=== PATIENT | female | born 1960 | race Caucasian/White ===

== ENCOUNTER 2016-07-17 11:04 | Inpatient (IN) | payer OTHER, MEDICAID, MEDICARE ==
[~2016-07-17] VITALS: Ht 174.6 cm; Wt 89.3 kg
[~2016-07-17 11:04] MED LIST: ALBU17IN2 INH; AMLO5TAB2 PO; ATIV1TAB7 PO; ATIV2TAB PO; BENA20TA2 PO; BIMA01SOL OU; EFFE150C PO; EFFE75CA75 PO; GEOD60CA PO; MULT1TAB10 PO; VENL37CA PO
[2016-07-17 12:41] LABS: MEAN CORPUSCULAR HEMOGLOBIN 28.5 pg (27.0-33.0); MEAN CORPUSCULAR VOLUME 89.1 fl (80.0-96.0)
[2016-07-17 12:48] LABS: AMPHETAMINES LEVEL URINE NEGATIVE (NEGATIVE); BENZODIAZEPINES URINE NEGATIVE (NEGATIVE); COCAINE METABOLITE URINE NEGATIVE (NEGATIVE); CONTROL LINE INT CTR LINE PRESENT; METHADONE URINE NEGATIVE (NEGATIVE); OPIATES URINE NEGATIVE (NEGATIVE); TRICYCLIC ANTIDEPRESS URINE NEGATIVE (NEGATIVE)
[2016-07-17 13:03] LABS: ALBUMIN 4.1 GM/DL (3.2-5.2); ALBUMIN/GLOBULIN RATIO 1.32 (1.00-1.93); ALKALINE PHOSPHATASE 62 U/L (45-117); ALT/SGPT 34 U/L (12-78); ANION GAP 8 MEQ/L (8-16); AST/SGOT 20 U/L (15-37); BILIRUBIN,DIRECT 0.2 MG/DL (0.0-0.2); BILIRUBIN,TOTAL 0.7 MG/DL (0.2-1.0); BLOOD UREA NITROGEN 10 MG/DL (7-18); CALCIUM LEVEL 9.6 MG/DL (8.5-10.1); CARBON DIOXIDE LEVEL 30 MEQ/L (21-32); CHLORIDE LEVEL 100 MEQ/L (98-107); CREATININE FOR GFR 1.07 MG/DL (0.55-1.02); GLOMERULAR FILTRATION RATE 56.5 (>51); GLUCOSE, FASTING 98 MG/DL (70-105); POTASSIUM SERUM 4.6 MEQ/L (3.5-5.1); SODIUM LEVEL 138 MEQ/L (136-145); TOTAL PROTEIN 7.2 GM/DL (6.4-8.2)
[2016-07-17] MEDS ORDERED: CALC600T10 PO (14:06)
[2016-07-17] MEDS ORDERED: ALPH0.156 OU (14:06)
[2016-07-17] MEDS ORDERED: ABIL1TAB5 PO (14:06)
--- NOTE | 2016-07-17 16:51 | EDDOCDS ---
Physician Documentation [employer] Name: Emma Chopra Age: 56 yrs Sex: Female : 1960 Arrival Date: 07/17/2016 Time: 11:04 Bed [facility] MD: Disposition: 07/17 13:38 Critical Care: Critical care not applicable. pc Disposition: 07/17/16 13:38 Hospitalization ordered by Florencio Bunch for Inpatient Admission. Preliminary diagnosis is Bipolar disorder, current episode depressed, moderate. - Bed requested for Admit. - Status is Inpatient Admission. jf3 - Condition is Stable. - Problem is new. - Symptoms are unchanged. HPI: 13:16 This 56 yrs old Female presents to ER via Ambulance with complaints of Psych pc Problem. 13:16 The history is obtained from the patient. The patient presents to the emergency pc department with She was sent for admission by her Psychiatrist, Dr. Joseph, due to depression. Historical: - Allergies: SULFA (SULFONAMIDES) (Rash); TETRACYCLINES (Rash); Tegretol; Erythromycin (Rash); PENICILLINS (Rash); Amoxicillin; Macrodantin; Lamictal; - Home Meds: 1. Abilify 10 mg Oral tab 1 tab once daily nightly (Last dose: 07/16/2016) 2. albuterol MDI PRN (Last dose: Unknown) 3. proAir HFA PRN (Last dose: Unknown) 4. Effexor XR 150 mg oral cp24 once daily nightly (Last dose: 07/16/2016) 5. Geodon 80 mg am and 120 mg evening Oral cap (Last dose: 07/17/2016 05:00) 6. Ativan 1 mg am and 2 mg night Oral tab (Last dose: 07/17/2016 05:00) 7. benazepril 20 mg oral tab 1 tab once daily (Last dose: 07/16/2016 21:00) 8. alphagan eye drops twice a day (Last dose: 07/17/2016 05:00) 9. Lumigan Opht once daily nightly (Last dose: 07/16/2016) 10. calcium 1200mg daily (Last dose: 07/16/2016) 11. multivitamin Oral cap 1 tablet daily (Last dose: 07/17/2016 05:00) - PMHx: Arthritis; Bipolar disorder; Depression; - PSHx: bunion and hammer toe surgery left foot; - The history from nurses notes was reviewed: and I agree with what is documented. - Social history: No barriers to communication noted, The patient speaks fluent Barbadian, Smoking status: other. - Family history: Not pertinent. - : The pt / caregiver states he / she is not on anticoagulants. Home medication list is obtained from the patient, patients' pharmacy. - Hospitalizations: : No recent hospitalization is reported. - Exposure Risk Screening:: None identified. - Immunization history:: All immunizations up-to-date. - Social history:: the patient is a non-smoker, the patient does not drink alcohol. ROS: 13:16 All systems are negative except as listed. The psychiatric and neurological components pc are also addressed in the HPI. Exam: 13:16 General Appearance: alert, no acute distress. pc 13:16 ENT: ear, nose and throat normal, pharynx normal. 13:16 Eyes: pupils equal, round and reactive to light, extraocular motions intact. 13:16 Neck: The exam reveals no acute abnormalities. ROM is normal and painless. No nuchal rigidity is noted.. 13:16 Respiratory: breathing is even and unlabored, breath sounds are normal. 13:16 Cardiovascular: regular pulse rate, regular heart rhythm, normal heart sounds, equal and full pulses bilaterally. 13:16 Abdomen: soft, non-tender, no organomegaly, normal bowel sounds. 13:16 Skin: skin color is normal, warm, dry. 13:16 Extremities: The extremities have a grossly normal appearance, are non-tender, without acute ROM abnormalities. 13:16 Neuro: alert, oriented to person, place and time, cranial nerves normal as tested, no motor deficits, no sensory deficits. 13:16 Psych: mood is depressed, affect is flat. Vital Signs: 11:45 BP 166 / 92; Pulse 80; Resp 16; Temp 99.8(O); Pulse Ox 96% on R/A; Pain 0/10; jf3 12:09 Weight 86.18 kg / 189.99 lbs; Height 5 ft. 8 in. (172.72 cm); jf3 16:47 BP 171 / 84; Pulse 84; Resp 18; Temp 99.8(O); Pulse Ox 98% on R/A; Pain 0/10; jf3 12:09 Body Mass Index 28.89 (86.18 kg, 172.72 cm) jf3 MDM: 12:04 Consult PFS/PSA/Vacuum Drier Operator: Patient's case requires discussion with on-call pc Psychiatrist ordered. 12:04 PSA/PFS to call Nursing Sales Enablement Lead, to enter patient data on [employer] Safe Act if patient pc involuntarily admitted or transferred for SI or HI ordered. 12:04 Confirm accurate psychiatric medication list and times of last dosage ordered. pc 12:04 Detain Pt Until Medically/PFS Cleared ordered. pc 12:05 Acetaminophen Level Ordered. EDMS 12:05 Basic Metabolic Profile Ordered. EDMS 12:05 Complete Blood Count Ordered. EDMS 12:05 Drug Eval Toxicology ED Only Ordered. EDMS 12:05 Ethyl Alcohol (ethanol) Ordered. EDMS 12:05 Liver Profile Ordered. EDMS 12:06 Salicylate Level Ordered. EDMS 12:06 Thyroid Stimulating Hormone Ordered. EDMS 12:24 REGULAR DIET PLASTIC WRIGHT+DIET ordered. EDMS 12:33 Consult PFS/PSA/Vacuum Drier Operator: Patient's case requires discussion with on-call ca Psychiatrist complete. 13:15 Acetaminophen Level Reviewed. pc 13:15 Basic Metabolic Profile Reviewed. pc 13:15 Salicylate Level Reviewed. pc 13:15 Complete Blood Count Reviewed. pc 13:15 Drug Eval Toxicology ED Only Reviewed. pc 13:15 Ethyl Alcohol (ethanol) Reviewed. pc 13:15 Liver Profile Reviewed. pc 13:15 Thyroid Stimulating Hormone Reviewed. pc 13:16 Differential diagnosis: depression. Plan: labs, PFS eval. pc 13:37 The patient has been medically cleared for psychiatric evaluation, admission and/or pc transfer. [place]: [place] to the [place] was not completed because the patient did not display any suicidal or homicidal ideation and was not considered a risk to self or others. 13:38 Data reviewed: old medical records, vital signs, nurses notes, lab test results. Test pc interpretation: LAB - all labs as ordered have been reviewed, interpreted and considered in the overall management of the clinical presentation;. The patient has been re-examined and re-evaluated. There is no appreciated change of the patient's symptoms at this time. Disposition: The historical points, examination findings, and any diagnostic results supporting the provided diagnosis, were discussed with the patient or legal guardian. The need for further work-up and/or treatment in the hospital was explained. 13:54 Admit to [facility]: ordered. EDMS 14:26 Financial registration complete. mm15 14:27 [facility] Payment Agreement was scanned into [employer] and attached to record. mm15 14:44 PSA/PFS to call Nursing Sales Enablement Lead, to enter patient data [place] Safe [place] if patient ca involuntarily admitted or transferred for SI or HI complete. Signatures: Dispatcher [employer] EDMS Francisco Mclaughlin MD MD pc Anderson, Cathy, ANAYA PSA ca Chikis Aguila mm15 Devin Huang,RN RN jf3 The chart was reviewed and I authenticate all verbal orders and agree with the evaluation and treatment provided.Attachments: 14:27 [facility] Payment Agreement mm15 MTDD
--- NOTE | 2016-07-17 16:51 | EDDOCDS ---
Nurse's Notes [facility] Name: Emma Chopra Age: 56 yrs Sex: Female : 1960 Arrival Date: 07/17/2016 Time: 11:[address] MD: Diagnosis: Bipolar disorder, current episode depressed, moderate Presentation: 07/17 11:53 Presenting complaint: Patient states: Pt sent by Dr Lowe for "being too depressed". Pt jf3 states she has been "having mood swings, is stressed out, exhausted, terrible home life and mother is not well". Pt denies SI/HI but wants to be admitted. Mental Health Triage Level: Level 2:. Adult Sepsis Screening: The patient does not have new or worsening altered mentation. Patient's respiratory rate is less than 22. Systolic blood pressure is greater than 100. Patient has a qSOFA score of 0- Negative Sepsis Screen. Suicide/Homicide risk assessment- Patient denies SI and HI but presents with another emotional, behavioral or other mental health complaint. Status: Patient is not a volunteer services specialist or dependent. Transition of care: patient was received from [facility]. Dr Lowe. Care prior to arrival: See EMS report. 11:53 Acuity: SHAY Level 3 jf3 11:53 Method Of Arrival: Ambulance jf3 Triage Assessment: 12:03 General: Appears in no apparent distress, comfortable, Behavior is cooperative. Pain: jf3 Denies pain. Pt Declines HIV testing. The patient is triaged at the bedside. See Assessment in Nurses Notes section of ED record. Historical: - Allergies: SULFA (SULFONAMIDES) (Rash); TETRACYCLINES (Rash); Tegretol; Erythromycin (Rash); PENICILLINS (Rash); Amoxicillin; Macrodantin; Lamictal; - Home Meds: 1. Abilify 10 mg Oral tab 1 tab once daily nightly (Last dose: 07/16/2016) 2. albuterol MDI PRN (Last dose: Unknown) 3. proAir HFA PRN (Last dose: Unknown) 4. Effexor XR 150 mg oral cp24 once daily nightly (Last dose: 07/16/2016) 5. Geodon 80 mg am and 120 mg evening Oral cap (Last dose: 07/17/2016 05:00) 6. Ativan 1 mg am and 2 mg night Oral tab (Last dose: 07/17/2016 05:00) 7. benazepril 20 mg oral tab 1 tab once daily (Last dose: 07/16/2016 21:00) 8. alphagan eye drops twice a day (Last dose: 07/17/2016 05:00) 9. Lumigan Opht once daily nightly (Last dose: 07/16/2016) 10. calcium 1200mg daily (Last dose: 07/16/2016) 11. multivitamin Oral cap 1 tablet daily (Last dose: 07/17/2016 05:00) - PMHx: Arthritis; Bipolar disorder; Depression; - PSHx: bunion and hammer toe surgery left foot; - The history from nurses notes was reviewed: and I agree with what is documented. - Social history: No barriers to communication noted, The patient speaks fluent Syriac, Smoking status: other. - Family history: Not pertinent. - : The pt / caregiver states he / she is not on anticoagulants. Home medication list is obtained from the patient, patients' pharmacy. - Hospitalizations: : No recent hospitalization is reported. - Exposure Risk Screening:: None identified. - Immunization history:: All immunizations up-to-date. - Social history:: the patient is a non-smoker, the patient does not drink alcohol. Screenin:33 Screening information is obtained from the patient. Fall risk: No risks identified. jf3 Assistance ADL's: requires no assistance with activities of daily living. Abuse/DV Screen: The patient / caregiver reports he/she is: in a living situation that causes fear, pain or injury. PSA aware. Nutritional screening: No deficits noted. Advance Directives: Currently, there is a health care proxy, Maritza palomares, sister in law. home support is inadequate. Assessment: 12:10 Adult Sepsis Screening: The patient does not have new or worsening altered mentation. jf3 Patient's respiratory rate is less than 22. Systolic blood pressure is greater than 100. Patient has a qSOFA score of 1- Negative Sepsis Screen. General: Appears in no apparent distress, comfortable, Behavior is cooperative. Pain: Denies pain. Neurological: Level of Consciousness is awake, alert, Oriented to person, place, time. Cardiovascular: Capillary refill < 3 seconds Chest pain is denied. Respiratory: Airway is patent Respiratory effort is even, unlabored, Respiratory pattern is regular, symmetrical, Denies shortness of breath at rest. Derm: Skin is pink, warm & dry. 12:33 General: Appears in no apparent distress, comfortable, Behavior is cooperative, Pt jf3 changed by FARSHAD Peña. Resting supine on stretcher. respirations easy and unlabored. Security observing. 13:30 General: Appears in no apparent distress, comfortable, Behavior is cooperative, Pt jf3 given lunch tray. Resting on stretcher. respirations easy and unlabored. Med list verified through [facility] in [place]. Security observing. 14:30 General: Appears in no apparent distress, comfortable, Behavior is cooperative, Pt jf3 resting sitting up on stretcher. respirations easy and unlabored. Security observing. Will continue to monitor. 15:30 General: Appears in no apparent distress, comfortable, Behavior is cooperative, Pt jf3 resting supine on stretcher. respirations easy and unlabored. Will continue to monitor. 16:47 General: Appears in no apparent distress, comfortable, Behavior is cooperative. Pain: jf3 Denies pain. Neurological: Level of Consciousness is awake, alert, Oriented to person, place, time. Cardiovascular: Capillary refill < 3 seconds. Cardiovascular: Chest pain is denied. Respiratory: Airway is patent Respiratory effort is even, unlabored, Respiratory pattern is regular, symmetrical, Denies shortness of breath at rest. Derm: Skin is pink, warm & dry. Mental Health Eval: 12:32 Mental health consult is initiated at 12:32. Status: The patient is not a sc volunteer services specialist or dependent. [facility] Behavioral Health: The patient is established as a patient of [facility] Behavioral Health. Referral Information: Evaluation referral is generated by the patient's psychiatrist Dr Joseph at [facility]. The patient was referred for evaluation because Pt is depressed, decompensating . Dr Joseph requests admission for pt. 12:54 Subjective: The patients chief complaint is Pt saw her therapist at [facility] clinic today. ca Pt has multiple home stressors that are getting worse. Delusions are paranoid. 13:13 Subjective: Patient's mood is anxious, depressed, hopeless, Hallucinations are denied. ca 13:28 Subjective: Pt appears depressed. Speech is rapid, . She notes anger outbursts centered ca around difficulties within her family. Believes her sister wants her to and feels afraid the sister intends to kill her or make pt kill herself. Pt states "She's always sharpening knives and grinning at me." Pt adds that since she is able to read people's minds she knows what her family is thinking and knows that they want her . "I don't think I'm safe. They're trying to kill me." "Everything is falling apart.". Mental Health history: Bipolar Disorder, depression, Mental Health Admissions: Most recently 10/2015 at [facility] Current Outpatient Mental Health Services: Psychiatrist / Agency: Dr Joseph. Therapist / Agency: Roselia Bernal at [facility]. Current living environment is Family / Home Support: Lives with mother and sister The patient is single. Patient presents to Emergency Department with the following symptoms within the past 2 weeks: anger, anxiety, delusions of persecution, depressed mood, feelings of helplessness/hopelessness, paranoia, relational problem, sleep disturbance - erratic. Substance abuse: Pt denies. Mental status exam: Patients appearance is appropriate, Patient's behavior is cooperative, Speech is rapid. Affect is labile. Mood is depressed. Hallucinations are denied. Appetite is normal. Memory is good. Energy level is normal. Content of thought is Paranoid, delusional, depressive Thought process is intact. Disposition: Medically cleared for disposition by Francisco Mclaughlin MD Psychiatric Consult is performed by phone with Dr Florencio Bunch. [facility] Admission Criteria: The patient displays symptoms of severe psychiatric disorder resulting in disordered behavior and significant interference with his / her ability to maintain self care. Delusions. Severe Anxiety. The patient requires continuous observation and/or control to protect self, others or property. The patient's care requires a multi-modal treatment plan under close supervision and coordination due to the complexity and severity of the patient's symptoms. The patient requires administration and monitoring of psychoactive medications by skilled medical providers due to the side effects of the psychoactive medications or significant dosage adjustments. Legal Status: Patient's legal status will be Emergency admission: . [place] because the patient does not display any suicidal or homicidal ideations and does not pose a risk to self or others. DSM-V Differential Diagnosis: Bipolar II Disorder (F31.81) Current or most recent episode depressed, Unspecified. Insurance Pre-Certification: In progress. Awaiting: transfer to [facility]. Vital Signs: 11:45 BP 166 / 92; Pulse 80; Resp 16; Temp 99.8(O); Pulse Ox 96% on R/A; Pain 0/10; jf3 12:09 Weight 86.18 kg; Height 5 ft. 8 in. (172.72 cm); jf3 16:47 BP 171 / 84; Pulse 84; Resp 18; Temp 99.8(O); Pulse Ox 98% on R/A; Pain 0/10; jf3 12:09 Body Mass Index 28.89 (86.18 kg, 172.72 cm) jf3 Vitals: 12:03 Log In Time N/A - ambulance arrival. jf3 ED Course: 11:05 Patient visited by Chikis Aguila. mm15 11:[address] [facility] mm15 11:06 Patient moved to [facility] jrd 11:16 Patient visited by Avery Christianson PCA. jrd 11:21 Patient visited by Avery Christianson PCA. jrd 11:36 Francisco Mclaughlin MD is Attending Physician. pc 11:38 Patient visited by Avery Christianson PCA. jrd 11:45 Patient visited by Avery Christianson PCA. jrd 11:56 Triage Initiated jf3 12:04 Patient visited by Francisco Mclaughlin MD. pc 12:10 Patient visited by Avery Christianson PCA. jrd 12:10 The patient / caregiver is instructed regarding the plan of care and ED course. jf3 12:11 Patient visited by Devin Huang RN. jf3 12:14 Patient visited by Avery Christianson PCA. jrd 12:18 Patient visited by Avery Christianson PCA. jrd 12:32 Acetaminophen Level Sent. jf3 12:32 Basic Metabolic Profile Sent. jf3 12:32 Complete Blood Count Sent. jf3 12:32 Drug Eval Toxicology ED Only Sent. jf3 12:32 Ethyl Alcohol (ethanol) Sent. jf3 12:32 Liver Profile Sent. jf3 12:32 Salicylate Level Sent. jf3 12:32 Thyroid Stimulating Hormone Sent. jf3 12:33 Labs drawn. (by ED staff). Sent per order to lab. Urine collected. Urine specimen sent jf3 to lab. 12:36 Patient visited by Devin Huang RN. jf3 12:56 Patient visited by Avery Christianson PCA. jrd 13:07 Patient visited by Avery Christianson PCA. jrd 13:16 Patient visited by Avery Christianson PCA. jrd 13:30 Patient visited by Avery Christianson PCA. jrd 13:38 AliviaFlorencio brooks is Hospitalizing Provider. pc 13:42 Patient visited by Devin Huang RN. jf3 13:46 Patient visited by Avery Christianson PCA. jrd 14:01 Patient visited by Avrey Christianson PCA. jrd 14:14 Patient visited by Avery Christianson PCA. jrd 14:27 [facility] Payment Agreement was scanned into [employer] and attached to record. mm15 14:52 Patient visited by Devin Huang RN. jf3 15:32 Patient visited by Avery Christianson PCA. jrd 16:00 Patient visited by Avery Christianson PCA. jrd 16:12 Patient visited by Avery Christianson PCA. jrd 16:28 Patient visited by Avery Christianson PCA. jrd 16:47 No IV's were initiated during this patient's visit. No procedures done that require jf3 assistance. Order Results: Lab Order: Acetaminophen Level; SPEC'M 07/17/16 12:29 Test: ACETAMINOPHEN LEVEL; Value: < 2.0; Range: 10.0-30.0; Abnormal: Below low normal; Units: UG/ML; Status: F Lab Order: Basic Metabolic Profile; SPEC'M 07/17/16 12:29 Test: GLUCOSE, FASTING; Value: 98; Range: 70-105; Units: MG/DL; Status: F Test: BLOOD UREA NITROGEN; Value: 10; Range: 7-18; Units: MG/DL; Status: F Test: CREATININE FOR GFR; Value: 1.07; Range: 0.55-1.02; Abnormal: Above high normal; Units: MG/DL; Status: F Test: GLOMERULAR FILTRATION RATE; Value: 56.5; Range: >51; Status: F Test: SODIUM LEVEL; Value: 138; Range: 136-145; Units: MEQ/L; Status: F Test: POTASSIUM SERUM; Value: 4.6; Range: 3.5-5.1; Units: MEQ/L; Status: F Test: CHLORIDE LEVEL; Value: 100; Range: 98-107; Units: MEQ/L; Status: F Test: CARBON DIOXIDE LEVEL; Value: 30; Range: 21-32; Units: MEQ/L; Status: F Test: ANION GAP; Value: 8; Range: 8-16; Units: MEQ/L; Status: F Test: CALCIUM LEVEL; Value: 9.6; Range: 8.5-10.1; Units: MG/DL; Status: F Test Note: ; Units are mL/min/1.73 m2 Chronic Kidney Disease Staging per NKF: Stage I & II GFR >=60 Normal to Mildly Decreased Stage III GFR 30-59 Moderately Decreased Stage IV GFR 15-29 Severely Decreased Stage V GFR <15 Very Little GFR Left ESRD GFR <15 on LOG DECK TENDER Lab Order: Complete Blood Count; SPEC'M 07/17/16 12:29 Test: WHITE BLOOD COUNT; Value: 9.0; Range: 4.0-10.0; Units: K/mm3; Status: F Test: RED BLOOD COUNT; Value: 4.72; Range: 4.00-5.40; Units: M/mm3; Status: F Test: HEMOGLOBIN; Value: 13.5; Range: 12.0-16.0; Units: g/dl; Status: F Test: HEMATOCRIT; Value: 42.1; Range: 36.0-47.0; Units: %; Status: F Test: MEAN CORPUSCULAR VOLUME; Value: 89.1; Range: 80.0-96.0; Units: fl; Status: F Test: MEAN CORPUSCULAR HEMOGLOBIN; Value: 28.5; Range: 27.0-33.0; Units: pg; Status: F Test: MEAN CORPUSCULAR HGB CONC; Value: 32.0; Range: 32.0-36.5; Units: g/dl; Status: F Test: RED CELL DISTRIBUTION WIDTH; Value: 13.0; Range: 11.5-14.5; Units: %; Status: F Test: PLATELET COUNT, AUTOMATED; Value: 264; Range: 150-450; Units: k/mm3; Status: F Lab Order: Drug Eval Toxicology ED Only; SPEC'M 07/17/16 12:29 Test: AMPHETAMINES LEVEL URINE; Value: NEGATIVE; Range: NEGATIVE; Status: F Test: BARBITURATES URINE; Value: NEGATIVE; Range: NEGATIVE; Status: F Test: BENZODIAZEPINES URINE; Value: NEGATIVE; Range: NEGATIVE; Status: F Test: CANNABINOIDS URINE; Value: NEGATIVE; Range: NEGATIVE; Status: F Test: COCAINE METABOLITE URINE; Value: NEGATIVE; Range: NEGATIVE; Status: F Test: METHADONE URINE; Value: NEGATIVE; Range: NEGATIVE; Status: F Test: OPIATES URINE; Value: NEGATIVE; Range: NEGATIVE; Status: F Test: TRICYCLIC ANTIDEPRESS URINE; Value: NEGATIVE; Range: NEGATIVE; Status: F Test Note: ; ALL PRESUMPTIVE POSITIVE FINDINGS ARE UNCONFIRMED NORMAL VALUES THRESHOLD IN NG/ML AMPHETAMINES 1000 METHAMPHETAMINES 1000 BARBITURATES 300 BENZODIAZEPINES 300 CANNABINOIDS (THC) 50 COCAINE METABOLITE 300 METHADONE 300 OPIATES 300 PHENCYCLIDINE 25 TRICYCLIC ANTIDEPRESSANTS 1000 RESULTS ARE FOR MEDICAL PURPOSES ONLY. ALL URINE SPECIMENS WILL BE SAVED FOR 3 DAYS. IF CONFIRMATION OF A PRESUMPTIVE POSTIVE SCREEN RESULT IS DESIRED, CALL CHEMISTRY ([phone]) AND REQUEST URINE TO BE SENT TO REFERENCE LAB. FOR A LIST OF CLOSELY RELATED COMPOUNDS PLEASE CALL THE LAB. Lab Order: Ethyl Alcohol (ethanol); SPEC'M 07/17/16 12:29 Test: ETHYL ALCOHOL (ETHANOL); Value: < 0.003; Range: 0.000-0.010; Units: %; Status: F Lab Order: Liver Profile; SPEC'M 07/17/16 12:29 Test: AST/SGOT; Value: 20; Range: 15-37; Units: U/L; Status: F Test: ALT/SGPT; Value: 34; Range: 12-78; Units: U/L; Status: F Test: ALKALINE PHOSPHATASE; Value: 62; Range: 45-117; Units: U/L; Status: F Test: BILIRUBIN,TOTAL; Value: 0.7; Range: 0.2-1.0; Units: MG/DL; Status: F Test: BILIRUBIN,DIRECT; Value: 0.2; Range: 0.0-0.2; Units: MG/DL; Status: F Test: TOTAL PROTEIN; Value: 7.2; Range: 6.4-8.2; Units: GM/DL; Status: F Test: ALBUMIN; Value: 4.1; Range: 3.2-5.2; Units: GM/DL; Status: F Test: ALBUMIN/GLOBULIN RATIO; Value: 1.32; Range: 1.00-1.93; Status: F Lab Order: Salicylate Level; SPEC'M 07/17/16 12:29 Test: SALICYLATE LEVEL; Value: < 1.7; Range: 5.0-30.0; Abnormal: Below low normal; Units: MG/DL; Status: F Lab Order: Thyroid Stimulating Hormone; SPEC'M 07/17/16 12:29 Test: THYROID STIMULATING HORMONE; Value: 0.895; Range: 0.358-3.740; Units: uIU/ML; Status: F Outcome: 13:38 Decision to Hospitalize by Provider. 16:47 Discharge Assessment: patient administered narcotics - no. The following High Risk jf3 Discharge criteria are identified: None. Admitted to Psych accompanied by tech, via wheelchair, with chart. Condition: stable. No special radiology studies were completed. Property secured with FARSHAD Ashraf. 16:50 Patient left the ED. jf3 Signatures: Francisco Mclaughlin MD MD pc Anderson, Cathy, PSA PSA Chikis Trent mm15 Avery Christianson PCA PCA jrd Farman, Justin,MARIJA RN jf3 NAY
[2016-07-17 17:00] VITALS: BP 184/86
[2016-07-17] MEDS ORDERED: MAALOX 30 ML SUSP *UDC PO PRN (18:45)
[2016-07-17] MEDS ORDERED: traZODone 50 MG TAB PO PRN (20:30)
[2016-07-17] MEDS: LATANOPROST 0.005% OPHTH SOLN 2.5 ML OU SCH (21:00)
[2016-07-17] MEDS: BRIMONIDINE 0.15% OPHTH SOLN 5 ML OU SCH (21:13)
[2016-07-17] MEDS: BENAZEPRIL 20 MG TAB PO SCH (21:13)
[2016-07-17] MEDS: ZIPRASIDONE 20MG CAPSULE (GEODON) PO SCH (21:16)
[2016-07-18 06:37] VITALS: BP 118/84
[2016-07-18] MEDS: BRIMONIDINE 0.15% OPHTH SOLN 5 ML OU SCH ×2 (08:11→20:13)
[2016-07-18] MEDS: ZIPRASIDONE 80 MG CAP (GEODON) PO SCH (10:26)
[2016-07-18] MEDS: LORazepam 1 MG TAB PO SCH ×2 (10:26→20:11)
[2016-07-18] MEDS ORDERED: ALBUTEROL 90 MCG/ACT 8GM HFA INHALER INH PRN (10:45)
--- NOTE | 2016-07-18 10:47 | HPEPDOC ---
Medical History and Physical Date of Admission Jul 17, 2016 at 16:58 History and Physical PCP: Cr ATTENDING: Dr. Kenny Henry HPI: 56yoF admitted to [facility] for Bipolar Disorder, being medically examined today. No acute medical complaints today. Denies any fevers, chills, weakness, fatigue, MCCLELLAN, CP, SOB, cough, palpitations, abdominal pain, N/V/D or changes in bowel or bladder habits. PMHx: Bipolar disorder Asthma Hypertension Glaucoma- Dr Wood Osteoarthritis PSHX: Left foot surgery SOCHX: Resides in: [place] Marital Status: Single Employment: Unemployed Tobacco use: Denies ETOH: Denies Illicit Drugs: Denies IV Drug Use: Denies Tattoos done unprofessionally: Denies FAMHX: Mother: Alive, dementia Father: , renal failure/cancer Siblings: One brother, one sister Alive, unknown Children: Alive, unknown Unexpected deaths due to medical reasons: None. ROS: As noted in HPI, otherwise 11pt ROS of systems reviewed and remarkable only for LMP unknown. PE: Temp on exam 99.0 GEN: 56yoF, appears stated age. Well-nourished, well developed. No acute distress. Alert and oriented x 3. Pleasant, interactive. HEENT: Normocephalic, atraumatic. Pupils are equal, round, and reactive to light. Extraocular movements are intact. No nystagmus appreciated. Sclera are nonicteric. Conjunctiva without injection. Nose midline. Nasal turbinates without bogginess. EACs both patent BL. TMs both visualized and schroeder with good cone of light, no bulging or erythema. No facial asymmetry. Moist mucous membranes. Dentition fair. Pharynx pink and moist, no cobblestoning. Neck supple , trachea midline. No lymphadenopathy or thyromegaly appreciated. CHEST: Regular rate and rhythm, +S1, +S2 LUNGS: Clear to auscultation bilaterally. No wheezes, rales, or rhonchi. Breathing appears symmetric and easy. Patient is speaking in full sentences. No accessory muscle use. ABD: Round, soft, non-tender, non-distended. +Bowel sounds throughout. No rebound or guarding. No costovertebral angle tenderness. EXT: Pulses 2+ bilaterally dorsalis pedis and radial. No lower extremity edema appreciated. SKIN: [place], dry, warm. Capillary refill <2sec. No rashes. NEURO: Alert and oriented x 3. Cranial nerves III-XII are intact. No focal deficits appreciated. EKG: pending. A&P: 56yoF admitted to [facility] for Bipolar Disorder 1. Psych. Plan per Psychiatry. Obtain baseline EKG to assure the safety of psychiatric medications as they can prolong the QT interval. 2. Hypertension. Continue Lotensin 20 mg daily. 3. Glaucoma. Continue Alphagan eyedrops twice daily. Continue Lumigan. Confirm eyedrop regimen with ophthalmology. 4. Follow up with PCP on discharge. Dr Hankins. 5. Accompanied by staff throughout examination, Tania DUTTON. Vital Signs Item Value Date Time White Blood Count 9.0 K/mm3 07/17/16 1229 Oxygen Delivery Method Room Air 07/18/16 0637 Vital Signs Label Value Date Time Patient Temperature 100.3 degrees F 07/18/16 0637 Temperature Source Tympanic 07/18/16 0637 Pulse 95 07/18/16 0637 Respiratory Rate 18 bpm 07/18/16 0637 Blood Pressure Assessment 118/84 (95) 07/18/16 0637 Bedside Pulse Oximetry 95 % 07/18/16 0637 Laboratory Data Labs 24H Laboratory Tests 2 07/17/16 12:29: Acetaminophen Level < 2.0L, Aspartate Amino Transf (AST/SGOT) 20, Alanine Aminotransferase (ALT/SGPT) 34, Alkaline Phosphatase 62, Total Bilirubin 0.7, Direct Bilirubin 0.2, Albumin 4.1, Albumin/Globulin Ratio 1.32, Anion Gap 8, Calcium Level 9.6, Ethyl Alcohol Level < 0.003, Glomerular Filtration Rate 56.5 , Salicylates Level < 1.7L, Thyroid Stimulating Hormone (TSH) 0.895, Total Protein 7.2, Urine Amphetamine Level NEGATIVE, Urine Benzodiazepines Screen NEGATIVE, Urine Cannabinoids NEGATIVE, Urine Cocaine Metabolite NEGATIVE, Urine Opiates Screen NEGATIVE, Urine Barbiturates, Qualitative NEGATIVE, Urine Methadone Screen NEGATIVE, Urine Tricyclic Antidepressants NEGATIVE CBC/BMP Laboratory Tests 07/17/16 12:29 Red Blood Count 4.72, Mean Corpuscular Volume 89.1, Mean Corpuscular Hemoglobin 28.5, Mean Corpuscular Hemoglobin Concent 32.0, Red Cell Distribution Width 13.0 Home Medications Scheduled Aripiprazole (Abilify) 10 Mg Tab 10 MG PO QHS Benazepril HCl (Benazepril HCl) 20 Mg Tab 20 MG PO QHS HTN Bimatoprost (Lumigan) 50 Drop/2.5 Ml Christina 1 DROP OU QHS Brimonidine Tartrate 0.15% (Alphagan P) 0.15 % Christina 1 DROP OU BID Calcium (Calcium) 600 Mg Tab 1,200 MG PO QHS Lorazepam (Ativan) 1 Mg Tab 1 MG PO BID ANXIETY Multivitamins (Multivitamin Adults) 1 Tab Tab 1 TAB PO BID DIETARY SUPPLEMENT Venlafaxine Hydrochloride (Effexor Xr) 150 Mg Cap 150 MG PO QHS DEPRESSION Ziprasidone Hydrochloride (Geodon) 60 Mg Cap 80 MG PO DAILY bipolar Ziprasidone Hydrochloride (Geodon) 60 Mg Cap 120 MG PO QPM bipolar Scheduled PRN Albuterol Sulfate (Proventil Hfa) 167 Puff/6.7 Gm Aers 2 PUFFS INH Q4HP PRN PRN SOB/WHEEZING Allergies Coded Allergies: Erythromycin (Verified Allergy, Mild, 10/26/12) Carbamazepine (Unverified Allergy, Unknown, 07/17/16) Lamotrigine (Unverified Allergy, Unknown, 07/17/16) Nitrofurantoin (Unverified Allergy, Unknown, 07/17/16) Penicillins (Verified Allergy, Unknown, 10/26/12) Penicillins Cross Reactors (Verified Allergy, Unknown, 10/26/12) Sulfa Drugs (Verified Allergy, Unknown, 10/26/12) Sulfa Drugs Cross Reactors (Verified Allergy, Unknown, 10/26/12) Tetracyclines (Verified Allergy, Unknown, 10/26/12) Laurel Darling Jul 18, 2016 10:47
--- NOTE | 2016-07-18 15:17 | ECGEPIP ---
Stationary ECG Study [facility] Test Date: 2016-07-18 Pat Name: TOMASZ EMMANUEL Department: Room: [place] [address] Gender: F Business Development Engineer: DORITA : 1960 Requested By: Laurel Darling Order Number: [id number] Reading MD: Marium Groves Measurements Intervals [place] Rate: 85 P: 34 ME: 155 QRS: 71 QRSD: 88 T: 61 QT: 358 QTc: 426 Interpretive Statements SINUS RHYTHM NORMAL Electronically Signed On 07-18-2016 15:17:29 EST by Marium Groves
[2016-07-18 18:00] VITALS: BP 138/74
[2016-07-18] MEDS: BENAZEPRIL 20 MG TAB PO SCH (20:11)
[2016-07-18] MEDS: ARIPiprazole 10 MG TAB PO SCH (20:11)
[2016-07-18] MEDS: ZIPRASIDONE 20MG CAPSULE (GEODON) PO SCH (20:11)
[2016-07-18] MEDS: VENLAFAXINE **XR** 75MG CAPSULE PO SCH (20:11)
[2016-07-18] MEDS: LATANOPROST 0.005% OPHTH SOLN 2.5 ML OU SCH (20:13)
[2016-07-19 06:36] VITALS: BP 159/92
[2016-07-19] MEDS: MOM 30ML SUSPENSION UDC PO PRN (06:46)
[2016-07-19] MEDS: BRIMONIDINE 0.15% OPHTH SOLN 5 ML OU SCH ×2 (08:06→20:05)
[2016-07-19] MEDS: LORazepam 1 MG TAB PO SCH ×2 (08:06→20:04)
[2016-07-19] MEDS: ZIPRASIDONE 80 MG CAP (GEODON) PO SCH (08:06)
[2016-07-19] MEDS ORDERED: ARIPiprazole MONOHYDRATE 400 MG INJ (ABILIFY)(J0401) IM ONE (14:00)
[2016-07-19] MEDS: ARIPiprazole 10 MG TAB PO SCH ×2 (15:00→20:04)
--- NOTE | 2016-07-19 17:51 | EDDOCDS ---
Physician Documentation [facility] Name: Emma Chopra Age: 56 yrs Sex: Female : 1960 Arrival Date: 07/17/2016 Time: 11:04 Bed [facility] MD: Disposition: 07/17 13:38 Critical Care: Critical care not applicable. pc Disposition: 07/17/16 13:38 Hospitalization ordered by Florencio Bunch for Inpatient Admission. Preliminary diagnosis is Bipolar disorder, current episode depressed, moderate. - Bed requested for Admit. - Status is Inpatient Admission. jf3 - Condition is Stable. - Problem is new. - Symptoms are unchanged. HPI: 13:16 This 56 yrs old Female presents to ER via Ambulance with complaints of Psych pc Problem. 13:16 The history is obtained from the patient. The patient presents to the emergency pc department with She was sent for admission by her Psychiatrist, Dr. Joseph, due to depression. Historical: - Allergies: SULFA (SULFONAMIDES) (Rash); TETRACYCLINES (Rash); Tegretol; Erythromycin (Rash); PENICILLINS (Rash); Amoxicillin; Macrodantin; Lamictal; - Home Meds: 1. Abilify 10 mg Oral tab 1 tab once daily nightly (Last dose: 07/16/2016) 2. albuterol MDI PRN (Last dose: Unknown) 3. proAir HFA PRN (Last dose: Unknown) 4. Effexor XR 150 mg oral cp24 once daily nightly (Last dose: 07/16/2016) 5. Geodon 80 mg am and 120 mg evening Oral cap (Last dose: 07/17/2016 05:00) 6. Ativan 1 mg am and 2 mg night Oral tab (Last dose: 07/17/2016 05:00) 7. benazepril 20 mg oral tab 1 tab once daily (Last dose: 07/16/2016 21:00) 8. alphagan eye drops twice a day (Last dose: 07/17/2016 05:00) 9. Lumigan Opht once daily nightly (Last dose: 07/16/2016) 10. calcium 1200mg daily (Last dose: 07/16/2016) 11. multivitamin Oral cap 1 tablet daily (Last dose: 07/17/2016 05:00) - PMHx: Arthritis; Bipolar disorder; Depression; - PSHx: bunion and hammer toe surgery left foot; - The history from nurses notes was reviewed: and I agree with what is documented. - Social history: No barriers to communication noted, The patient speaks fluent Polish, Smoking status: other. - Family history: Not pertinent. - : The pt / caregiver states he / she is not on anticoagulants. Home medication list is obtained from the patient, patients' pharmacy. - Hospitalizations: : No recent hospitalization is reported. - Exposure Risk Screening:: None identified. - Immunization history:: All immunizations up-to-date. - Social history:: the patient is a non-smoker, the patient does not drink alcohol. ROS: 13:16 All systems are negative except as listed. The psychiatric and neurological components pc are also addressed in the HPI. Exam: 13:16 General Appearance: alert, no acute distress. pc 13:16 ENT: ear, nose and throat normal, pharynx normal. 13:16 Eyes: pupils equal, round and reactive to light, extraocular motions intact. 13:16 Neck: The exam reveals no acute abnormalities. ROM is normal and painless. No nuchal rigidity is noted.. 13:16 Respiratory: breathing is even and unlabored, breath sounds are normal. 13:16 Cardiovascular: regular pulse rate, regular heart rhythm, normal heart sounds, equal and full pulses bilaterally. 13:16 Abdomen: soft, non-tender, no organomegaly, normal bowel sounds. 13:16 Skin: skin color is normal, warm, dry. 13:16 Extremities: The extremities have a grossly normal appearance, are non-tender, without acute ROM abnormalities. 13:16 Neuro: alert, oriented to person, place and time, cranial nerves normal as tested, no motor deficits, no sensory deficits. 13:16 Psych: mood is depressed, affect is flat. Vital Signs: 11:45 BP 166 / 92; Pulse 80; Resp 16; Temp 99.8(O); Pulse Ox 96% on R/A; Pain 0/10; jf3 12:09 Weight 86.18 kg / 189.99 lbs; Height 5 ft. 8 in. (172.72 cm); jf3 16:47 BP 171 / 84; Pulse 84; Resp 18; Temp 99.8(O); Pulse Ox 98% on R/A; Pain 0/10; jf3 12:09 Body Mass Index 28.89 (86.18 kg, 172.72 cm) jf3 MDM: 12:04 Consult PFS/PSA/Debeader: Patient's case requires discussion with on-call pc Psychiatrist ordered. 12:04 PSA/PFS to call Nursing Hand Molder And Caster, to enter patient data on [employer] Safe Act if patient pc involuntarily admitted or transferred for SI or HI ordered. 12:04 Confirm accurate psychiatric medication list and times of last dosage ordered. pc 12:04 Detain Pt Until Medically/PFS Cleared ordered. pc 12:05 Acetaminophen Level Ordered. EDMS 12:05 Basic Metabolic Profile Ordered. EDMS 12:05 Complete Blood Count Ordered. EDMS 12:05 Drug Eval Toxicology ED Only Ordered. EDMS 12:05 Ethyl Alcohol (ethanol) Ordered. EDMS 12:05 Liver Profile Ordered. EDMS 12:06 Salicylate Level Ordered. EDMS 12:06 Thyroid Stimulating Hormone Ordered. EDMS 12:24 REGULAR DIET PLASTIC WRIGHT+DIET ordered. EDMS 12:33 Consult PFS/PSA/Debeader: Patient's case requires discussion with on-call ca Psychiatrist complete. 13:15 Acetaminophen Level Reviewed. pc 13:15 Basic Metabolic Profile Reviewed. pc 13:15 Salicylate Level Reviewed. pc 13:15 Complete Blood Count Reviewed. pc 13:15 Drug Eval Toxicology ED Only Reviewed. pc 13:15 Ethyl Alcohol (ethanol) Reviewed. pc 13:15 Liver Profile Reviewed. pc 13:15 Thyroid Stimulating Hormone Reviewed. pc 13:16 Differential diagnosis: depression. Plan: labs, PFS eval. pc 13:37 The patient has been medically cleared for psychiatric evaluation, admission and/or pc transfer. [place]: [place] to the [place] was not completed because the patient did not display any suicidal or homicidal ideation and was not considered a risk to self or others. 13:38 Data reviewed: old medical records, vital signs, nurses notes, lab test results. Test pc interpretation: LAB - all labs as ordered have been reviewed, interpreted and considered in the overall management of the clinical presentation;. The patient has been re-examined and re-evaluated. There is no appreciated change of the patient's symptoms at this time. Disposition: The historical points, examination findings, and any diagnostic results supporting the provided diagnosis, were discussed with the patient or legal guardian. The need for further work-up and/or treatment in the hospital was explained. 13:54 Admit to [facility]: ordered. EDMS 14:26 Financial registration complete. mm15 14:27 [facility] Payment Agreement was scanned into [employer] and attached to record. mm15 14:44 PSA/PFS to call Nursing Hand Molder And Caster, to enter patient data [place] Safe [place] if patient ca involuntarily admitted or transferred for SI or HI complete. Signatures: Dispatcher MedHo EDMS Francisco Mclaughlin MD MD pc Anderson, Cathy, ANAYA PSA ca Chikis Aguila mm15 Devin Huang,RN RN jf3 The chart was reviewed and I authenticate all verbal orders and agree with the evaluation and treatment provided.Attachments: 14:27 [facility] Payment Agreement mm15 Chart Complete MTDD
--- NOTE | 2016-07-19 17:51 | EDDOCDS ---
Physician Documentation [facility] Name: Emma Chopra Age: 56 yrs Sex: Female : 1960 Arrival Date: 07/17/2016 Time: 11:04 Bed [facility] MD: Disposition: 07/17 13:38 Critical Care: Critical care not applicable. pc Disposition: 07/17/16 13:38 Hospitalization ordered by Florencio Bunch for Inpatient Admission. Preliminary diagnosis is Bipolar disorder, current episode depressed, moderate. - Bed requested for Admit. - Status is Inpatient Admission. jf3 - Condition is Stable. - Problem is new. - Symptoms are unchanged. HPI: 13:16 This 56 yrs old Female presents to ER via Ambulance with complaints of Psych pc Problem. 13:16 The history is obtained from the patient. The patient presents to the emergency pc department with She was sent for admission by her Psychiatrist, Dr. Joseph, due to depression. Historical: - Allergies: SULFA (SULFONAMIDES) (Rash); TETRACYCLINES (Rash); Tegretol; Erythromycin (Rash); PENICILLINS (Rash); Amoxicillin; Macrodantin; Lamictal; - Home Meds: 1. Abilify 10 mg Oral tab 1 tab once daily nightly (Last dose: 07/16/2016) 2. albuterol MDI PRN (Last dose: Unknown) 3. proAir HFA PRN (Last dose: Unknown) 4. Effexor XR 150 mg oral cp24 once daily nightly (Last dose: 07/16/2016) 5. Geodon 80 mg am and 120 mg evening Oral cap (Last dose: 07/17/2016 05:00) 6. Ativan 1 mg am and 2 mg night Oral tab (Last dose: 07/17/2016 05:00) 7. benazepril 20 mg oral tab 1 tab once daily (Last dose: 07/16/2016 21:00) 8. alphagan eye drops twice a day (Last dose: 07/17/2016 05:00) 9. Lumigan Opht once daily nightly (Last dose: 07/16/2016) 10. calcium 1200mg daily (Last dose: 07/16/2016) 11. multivitamin Oral cap 1 tablet daily (Last dose: 07/17/2016 05:00) - PMHx: Arthritis; Bipolar disorder; Depression; - PSHx: bunion and hammer toe surgery left foot; - The history from nurses notes was reviewed: and I agree with what is documented. - Social history: No barriers to communication noted, The patient speaks fluent Ukrainian, Smoking status: other. - Family history: Not pertinent. - : The pt / caregiver states he / she is not on anticoagulants. Home medication list is obtained from the patient, patients' pharmacy. - Hospitalizations: : No recent hospitalization is reported. - Exposure Risk Screening:: None identified. - Immunization history:: All immunizations up-to-date. - Social history:: the patient is a non-smoker, the patient does not drink alcohol. ROS: 13:16 All systems are negative except as listed. The psychiatric and neurological components pc are also addressed in the HPI. Exam: 13:16 General Appearance: alert, no acute distress. pc 13:16 ENT: ear, nose and throat normal, pharynx normal. 13:16 Eyes: pupils equal, round and reactive to light, extraocular motions intact. 13:16 Neck: The exam reveals no acute abnormalities. ROM is normal and painless. No nuchal rigidity is noted.. 13:16 Respiratory: breathing is even and unlabored, breath sounds are normal. 13:16 Cardiovascular: regular pulse rate, regular heart rhythm, normal heart sounds, equal and full pulses bilaterally. 13:16 Abdomen: soft, non-tender, no organomegaly, normal bowel sounds. 13:16 Skin: skin color is normal, warm, dry. 13:16 Extremities: The extremities have a grossly normal appearance, are non-tender, without acute ROM abnormalities. 13:16 Neuro: alert, oriented to person, place and time, cranial nerves normal as tested, no motor deficits, no sensory deficits. 13:16 Psych: mood is depressed, affect is flat. Vital Signs: 11:45 BP 166 / 92; Pulse 80; Resp 16; Temp 99.8(O); Pulse Ox 96% on R/A; Pain 0/10; jf3 12:09 Weight 86.18 kg / 189.99 lbs; Height 5 ft. 8 in. (172.72 cm); jf3 16:47 BP 171 / 84; Pulse 84; Resp 18; Temp 99.8(O); Pulse Ox 98% on R/A; Pain 0/10; jf3 12:09 Body Mass Index 28.89 (86.18 kg, 172.72 cm) jf3 MDM: 12:04 Consult PFS/PSA/Business Planner: Patient's case requires discussion with on-call pc Psychiatrist ordered. 12:04 PSA/PFS to call Nursing Body Trimmer Upholsterer, to enter patient data on [employer] Safe Act if patient pc involuntarily admitted or transferred for SI or HI ordered. 12:04 Confirm accurate psychiatric medication list and times of last dosage ordered. pc 12:04 Detain Pt Until Medically/PFS Cleared ordered. pc 12:05 Acetaminophen Level Ordered. EDMS 12:05 Basic Metabolic Profile Ordered. EDMS 12:05 Complete Blood Count Ordered. EDMS 12:05 Drug Eval Toxicology ED Only Ordered. EDMS 12:05 Ethyl Alcohol (ethanol) Ordered. EDMS 12:05 Liver Profile Ordered. EDMS 12:06 Salicylate Level Ordered. EDMS 12:06 Thyroid Stimulating Hormone Ordered. EDMS 12:24 REGULAR DIET PLASTIC WRIGHT+DIET ordered. EDMS 12:33 Consult PFS/PSA/Business Planner: Patient's case requires discussion with on-call ca Psychiatrist complete. 13:15 Acetaminophen Level Reviewed. pc 13:15 Basic Metabolic Profile Reviewed. pc 13:15 Salicylate Level Reviewed. pc 13:15 Complete Blood Count Reviewed. pc 13:15 Drug Eval Toxicology ED Only Reviewed. pc 13:15 Ethyl Alcohol (ethanol) Reviewed. pc 13:15 Liver Profile Reviewed. pc 13:15 Thyroid Stimulating Hormone Reviewed. pc 13:16 Differential diagnosis: depression. Plan: labs, PFS eval. pc 13:37 The patient has been medically cleared for psychiatric evaluation, admission and/or pc transfer. [place]: [place] to the [place] was not completed because the patient did not display any suicidal or homicidal ideation and was not considered a risk to self or others. 13:38 Data reviewed: old medical records, vital signs, nurses notes, lab test results. Test pc interpretation: LAB - all labs as ordered have been reviewed, interpreted and considered in the overall management of the clinical presentation;. The patient has been re-examined and re-evaluated. There is no appreciated change of the patient's symptoms at this time. Disposition: The historical points, examination findings, and any diagnostic results supporting the provided diagnosis, were discussed with the patient or legal guardian. The need for further work-up and/or treatment in the hospital was explained. 13:54 Admit to [facility]: ordered. EDMS 14:26 Financial registration complete. mm15 14:27 [facility] Payment Agreement was scanned into [employer] and attached to record. mm15 14:44 PSA/PFS to call Nursing Body Trimmer Upholsterer, to [place] if patient ca involuntarily admitted or transferred for SI or HI complete. Signatures: Dispatcher MedHo EDMS Francisco Mclaughlin MD MD pc Anderson, Cathy, ANAYA PSA ca Chikis Aguila mm15 Devin Huang,RN RN jf3 The chart was reviewed and I authenticate all verbal orders and agree with the evaluation and treatment provided.Attachments: 14:27 [facility] Payment Agreement mm15 Chart Complete MTDD
--- NOTE | 2016-07-19 17:52 | EDDOCDS ---
Nurse's Notes [facility] Name: Emma Chopra Age: 56 yrs Sex: Female : 1960 Arrival Date: 07/17/2016 Time: 11:[address] MD: Diagnosis: Bipolar disorder, current episode depressed, moderate Presentation: 07/17 11:53 Presenting complaint: Patient states: Pt sent by Dr Lowe for "being too depressed". Pt jf3 states she has been "having mood swings, is stressed out, exhausted, terrible home life and mother is not well". Pt denies SI/HI but wants to be admitted. Mental Health Triage Level: Level 2:. Adult Sepsis Screening: The patient does not have new or worsening altered mentation. Patient's respiratory rate is less than 22. Systolic blood pressure is greater than 100. Patient has a qSOFA score of 0- Negative Sepsis Screen. Suicide/Homicide risk assessment- Patient denies SI and HI but presents with another emotional, behavioral or other mental health complaint. Status: Patient is not a bilingual customer service specialist or dependent. Transition of care: patient was received from [facility]. Dr Lowe. Care prior to arrival: See EMS report. 11:53 Acuity: SHAY Level 3 jf3 11:53 Method Of Arrival: Ambulance jf3 Triage Assessment: 12:03 General: Appears in no apparent distress, comfortable, Behavior is cooperative. Pain: jf3 Denies pain. Pt Declines HIV testing. The patient is triaged at the bedside. See Assessment in Nurses Notes section of ED record. Historical: - Allergies: SULFA (SULFONAMIDES) (Rash); TETRACYCLINES (Rash); Tegretol; Erythromycin (Rash); PENICILLINS (Rash); Amoxicillin; Macrodantin; Lamictal; - Home Meds: 1. Abilify 10 mg Oral tab 1 tab once daily nightly (Last dose: 07/16/2016) 2. albuterol MDI PRN (Last dose: Unknown) 3. proAir HFA PRN (Last dose: Unknown) 4. Effexor XR 150 mg oral cp24 once daily nightly (Last dose: 07/16/2016) 5. Geodon 80 mg am and 120 mg evening Oral cap (Last dose: 07/17/2016 05:00) 6. Ativan 1 mg am and 2 mg night Oral tab (Last dose: 07/17/2016 05:00) 7. benazepril 20 mg oral tab 1 tab once daily (Last dose: 07/16/2016 21:00) 8. alphagan eye drops twice a day (Last dose: 07/17/2016 05:00) 9. Lumigan Opht once daily nightly (Last dose: 07/16/2016) 10. calcium 1200mg daily (Last dose: 07/16/2016) 11. multivitamin Oral cap 1 tablet daily (Last dose: 07/17/2016 05:00) - PMHx: Arthritis; Bipolar disorder; Depression; - PSHx: bunion and hammer toe surgery left foot; - The history from nurses notes was reviewed: and I agree with what is documented. - Social history: No barriers to communication noted, The patient speaks fluent Croatian, Smoking status: other. - Family history: Not pertinent. - : The pt / caregiver states he / she is not on anticoagulants. Home medication list is obtained from the patient, patients' pharmacy. - Hospitalizations: : No recent hospitalization is reported. - Exposure Risk Screening:: None identified. - Immunization history:: All immunizations up-to-date. - Social history:: the patient is a non-smoker, the patient does not drink alcohol. Screenin:33 Screening information is obtained from the patient. Fall risk: No risks identified. jf3 Assistance ADL's: requires no assistance with activities of daily living. Abuse/DV Screen: The patient / caregiver reports he/she is: in a living situation that causes fear, pain or injury. PSA aware. Nutritional screening: No deficits noted. Advance Directives: Currently, there is a health care proxy, Maritza palomares, sister in law. home support is inadequate. Assessment: 12:10 Adult Sepsis Screening: The patient does not have new or worsening altered mentation. jf3 Patient's respiratory rate is less than 22. Systolic blood pressure is greater than 100. Patient has a qSOFA score of 1- Negative Sepsis Screen. General: Appears in no apparent distress, comfortable, Behavior is cooperative. Pain: Denies pain. Neurological: Level of Consciousness is awake, alert, Oriented to person, place, time. Cardiovascular: Capillary refill < 3 seconds Chest pain is denied. Respiratory: Airway is patent Respiratory effort is even, unlabored, Respiratory pattern is regular, symmetrical, Denies shortness of breath at rest. Derm: Skin is pink, warm & dry. 12:33 General: Appears in no apparent distress, comfortable, Behavior is cooperative, Pt jf3 changed by FARSHAD Peña. Resting supine on stretcher. respirations easy and unlabored. Security observing. 13:30 General: Appears in no apparent distress, comfortable, Behavior is cooperative, Pt jf3 given lunch tray. Resting on stretcher. respirations easy and unlabored. Med list verified through [facility] in [place]. Security observing. 14:30 General: Appears in no apparent distress, comfortable, Behavior is cooperative, Pt jf3 resting sitting up on stretcher. respirations easy and unlabored. Security observing. Will continue to monitor. 15:30 General: Appears in no apparent distress, comfortable, Behavior is cooperative, Pt jf3 resting supine on stretcher. respirations easy and unlabored. Will continue to monitor. 16:47 General: Appears in no apparent distress, comfortable, Behavior is cooperative. Pain: jf3 Denies pain. Neurological: Level of Consciousness is awake, alert, Oriented to person, place, time. Cardiovascular: Capillary refill < 3 seconds. Cardiovascular: Chest pain is denied. Respiratory: Airway is patent Respiratory effort is even, unlabored, Respiratory pattern is regular, symmetrical, Denies shortness of breath at rest. Derm: Skin is pink, warm & dry. Mental Health Eval: 12:32 Mental health consult is initiated at 12:32. Status: The patient is not a [place] bilingual customer service specialist or dependent. [facility] Behavioral Health: The patient is established as a patient of [facility] Behavioral Health. Referral Information: Evaluation referral is generated by the patient's psychiatrist Dr Joseph at [facility] clinic. The patient was referred for evaluation because Pt is depressed, decompensating . Dr Joseph requests admission for pt. 12:54 Subjective: The patients chief complaint is Pt saw her therapist at [facility] clinic today. ca Pt has multiple home stressors that are getting worse. Delusions are paranoid. 13:13 Subjective: Patient's mood is anxious, depressed, hopeless, Hallucinations are denied. ca 13:28 Subjective: Pt appears depressed. Speech is rapid, . She notes anger outbursts centered ca around difficulties within her family. Believes her sister wants her to and feels afraid the sister intends to kill her or make pt kill herself. Pt states "She's always sharpening knives and grinning at me." Pt adds that since she is able to read people's minds she knows what her family is thinking and knows that they want her . "I don't think I'm safe. They're trying to kill me." "Everything is falling apart.". Mental Health history: Bipolar Disorder, depression, Mental Health Admissions: Most recently 10/2015 at [facility] Current Outpatient Mental Health Services: Psychiatrist / Agency: Dr Joseph. Therapist / Agency: Roselia Bernal at [facility]. Current living environment is Family / Home Support: Lives with mother and sister The patient is single. Patient presents to Emergency Department with the following symptoms within the past 2 weeks: anger, anxiety, delusions of persecution, depressed mood, feelings of helplessness/hopelessness, paranoia, relational problem, sleep disturbance - erratic. Substance abuse: Pt denies. Mental status exam: Patients appearance is appropriate, Patient's behavior is cooperative, Speech is rapid. Affect is labile. Mood is depressed. Hallucinations are denied. Appetite is normal. Memory is good. Energy level is normal. Content of thought is Paranoid, delusional, depressive Thought process is intact. Disposition: Medically cleared for disposition by Francisco Mclaughlin MD Psychiatric Consult is performed by phone with Dr Florencio Bunch. [facility] Admission Criteria: The patient displays symptoms of severe psychiatric disorder resulting in disordered behavior and significant interference with his / her ability to maintain self care. Delusions. Severe Anxiety. The patient requires continuous observation and/or control to protect self, others or property. The patient's care requires a multi-modal treatment plan under close supervision and coordination due to the complexity and severity of the patient's symptoms. The patient requires administration and monitoring of psychoactive medications by skilled medical providers due to the side effects of the psychoactive medications or significant dosage adjustments. Legal Status: Patient's legal status will be Emergency admission: . [place] because the patient does not display any suicidal or homicidal ideations and does not pose a risk to self or others. DSM-V Differential Diagnosis: Bipolar II Disorder (F31.81) Current or most recent episode depressed, Unspecified. Insurance Pre-Certification: In progress. Awaiting: transfer to [facility]. 07/18 12:18 Insurance Pre-Certification: approved by: Dorothea. Pt is approved for 6 days ca (07/17-07/22/16) with review on 07/23 with October at [phone], EXT [id number]. Auth number [id number]. Vital Signs: 07/17 11:45 BP 166 / 92; Pulse 80; Resp 16; Temp 99.8(O); Pulse Ox 96% on R/A; Pain 0/10; jf3 12:09 Weight 86.18 kg; Height 5 ft. 8 in. (172.72 cm); jf3 16:47 BP 171 / 84; Pulse 84; Resp 18; Temp 99.8(O); Pulse Ox 98% on R/A; Pain 0/10; jf3 12:09 Body Mass Index 28.89 (86.18 kg, 172.72 cm) jf3 Vitals: 12:03 Log In Time N/A - ambulance arrival. jf3 ED Course: 11:05 Patient visited by Chikis Aguila. mm15 11:05 Patient moved to [facility] mm15 11:06 Patient moved to [facility] jrd 11:16 Patient visited by Avery Christianson PCA. jrd 11:21 Patient visited by Avery Christianson PCA. jrd 11:36 Francisco Mclaughlin MD is Attending Physician. pc 11:38 Patient visited by Avery Christianson PCA. jrd 11:45 Patient visited by Avery Christianson PCA. jrd 11:56 Triage Initiated jf3 12:04 Patient visited by Francisco Mclaughlin MD. pc 12:10 Patient visited by Avery Christianson PCA. jrd 12:10 The patient / caregiver is instructed regarding the plan of care and ED course. jf3 12:11 Patient visited by Devin Huang RN. jf3 12:14 Patient visited by Avery Christianson PCA. jrd 12:18 Patient visited by Avery Christianson PCA. jrd 12:32 Acetaminophen Level Sent. jf3 12:32 Basic Metabolic Profile Sent. jf3 12:32 Complete Blood Count Sent. jf3 12:32 Drug Eval Toxicology ED Only Sent. jf3 12:32 Ethyl Alcohol (ethanol) Sent. jf3 12:32 Liver Profile Sent. jf3 12:32 Salicylate Level Sent. jf3 12:32 Thyroid Stimulating Hormone Sent. jf3 12:33 Labs drawn. (by ED staff). Sent per order to lab. Urine collected. Urine specimen sent jf3 to lab. 12:36 Patient visited by Devin Huang RN. jf3 12:56 Patient visited by Avery Christianson PCA. jrd 13:07 Patient visited by Avery Christianson PCA. jrd 13:16 Patient visited by Avery Christianson PCA. jrd 13:30 Patient visited by Avery Christianson PCA. jrd 13:38 Florencio Bunch is Hospitalizing Provider. pc 13:42 Patient visited by Devin Huang RN. jf3 13:46 Patient visited by Avery Christianson PCA. jrd 14:01 Patient visited by Avery Christianson PCA. jrd 14:14 Patient visited by Avery Christianson PCA. jrd 14:27 [facility] Payment Agreement was scanned into [employer] and attached to record. mm15 14:52 Patient visited by Devin Huang RN. jf3 15:32 Patient visited by Avery Christianson PCA. jrd 16:00 Patient visited by Avery Christianson PCA. jrd 16:12 Patient visited by Avery Christianson PCA. jrd 16:28 Patient visited by Avery Christianson PCA. jrd 16:47 No IV's were initiated during this patient's visit. No procedures done that require 3 assistance. Order Results: Lab Order: Acetaminophen Level; SPEC'M 07/17/16 12:29 Test: ACETAMINOPHEN LEVEL; Value: < 2.0; Range: 10.0-30.0; Abnormal: Below low normal; Units: UG/ML; Status: F Lab Order: Basic Metabolic Profile; SPEC'M 07/17/16 12:29 Test: GLUCOSE, FASTING; Value: 98; Range: 70-105; Units: MG/DL; Status: F Test: BLOOD UREA NITROGEN; Value: 10; Range: 7-18; Units: MG/DL; Status: F Test: CREATININE FOR GFR; Value: 1.07; Range: 0.55-1.02; Abnormal: Above high normal; Units: MG/DL; Status: F Test: GLOMERULAR FILTRATION RATE; Value: 56.5; Range: >51; Status: F Test: SODIUM LEVEL; Value: 138; Range: 136-145; Units: MEQ/L; Status: F Test: POTASSIUM SERUM; Value: 4.6; Range: 3.5-5.1; Units: MEQ/L; Status: F Test: CHLORIDE LEVEL; Value: 100; Range: 98-107; Units: MEQ/L; Status: F Test: CARBON DIOXIDE LEVEL; Value: 30; Range: 21-32; Units: MEQ/L; Status: F Test: ANION GAP; Value: 8; Range: 8-16; Units: MEQ/L; Status: F Test: CALCIUM LEVEL; Value: 9.6; Range: 8.5-10.1; Units: MG/DL; Status: F Test Note: ; Units are mL/min/1.73 m2 Chronic Kidney Disease Staging per NKF: Stage I & II GFR >=60 Normal to Mildly Decreased Stage III GFR 30-59 Moderately Decreased Stage IV GFR 15-29 Severely Decreased Stage V GFR <15 Very Little GFR Left ESRD GFR <15 on GENERATION ENGINEER Lab Order: Complete Blood Count; [facility]'M 07/17/16 12:29 Test: WHITE BLOOD COUNT; Value: 9.0; Range: 4.0-10.0; Units: K/mm3; Status: F Test: RED BLOOD COUNT; Value: 4.72; Range: 4.00-5.40; Units: M/mm3; Status: F Test: HEMOGLOBIN; Value: 13.5; Range: 12.0-16.0; Units: g/dl; Status: F Test: HEMATOCRIT; Value: 42.1; Range: 36.0-47.0; Units: %; Status: F Test: MEAN CORPUSCULAR VOLUME; Value: 89.1; Range: 80.0-96.0; Units: fl; Status: F Test: MEAN CORPUSCULAR HEMOGLOBIN; Value: 28.5; Range: 27.0-33.0; Units: pg; Status: F Test: MEAN CORPUSCULAR HGB CONC; Value: 32.0; Range: 32.0-36.5; Units: g/dl; Status: F Test: RED CELL DISTRIBUTION WIDTH; Value: 13.0; Range: 11.5-14.5; Units: %; Status: F Test: PLATELET COUNT, AUTOMATED; Value: 264; Range: 150-450; Units: k/mm3; Status: F Lab Order: Drug Eval Toxicology ED Only; SPEC'M 07/17/16 12:29 Test: AMPHETAMINES LEVEL URINE; Value: NEGATIVE; Range: NEGATIVE; Status: F Test: BARBITURATES URINE; Value: NEGATIVE; Range: NEGATIVE; Status: F Test: BENZODIAZEPINES URINE; Value: NEGATIVE; Range: NEGATIVE; Status: F Test: CANNABINOIDS URINE; Value: NEGATIVE; Range: NEGATIVE; Status: F Test: COCAINE METABOLITE URINE; Value: NEGATIVE; Range: NEGATIVE; Status: F Test: METHADONE URINE; Value: NEGATIVE; Range: NEGATIVE; Status: F Test: OPIATES URINE; Value: NEGATIVE; Range: NEGATIVE; Status: F Test: TRICYCLIC ANTIDEPRESS URINE; Value: NEGATIVE; Range: NEGATIVE; Status: F Test Note: ; ALL PRESUMPTIVE POSITIVE FINDINGS ARE UNCONFIRMED NORMAL VALUES THRESHOLD IN NG/ML AMPHETAMINES 1000 METHAMPHETAMINES 1000 BARBITURATES 300 BENZODIAZEPINES 300 CANNABINOIDS (THC) 50 COCAINE METABOLITE 300 METHADONE 300 OPIATES 300 PHENCYCLIDINE 25 TRICYCLIC ANTIDEPRESSANTS 1000 RESULTS ARE FOR MEDICAL PURPOSES ONLY. ALL URINE SPECIMENS WILL BE SAVED FOR 3 DAYS. IF CONFIRMATION OF A PRESUMPTIVE POSTIVE SCREEN RESULT IS DESIRED, CALL CHEMISTRY ([phone]) AND REQUEST URINE TO BE SENT TO REFERENCE LAB. FOR A LIST OF CLOSELY RELATED COMPOUNDS PLEASE CALL THE LAB. Lab Order: Ethyl Alcohol (ethanol); SPEC'M 07/17/16 12:29 Test: ETHYL ALCOHOL (ETHANOL); Value: < 0.003; Range: 0.000-0.010; Units: %; Status: F Lab Order: Liver Profile; SPEC'M 07/17/16 12:29 Test: AST/SGOT; Value: 20; Range: 15-37; Units: U/L; Status: F Test: ALT/SGPT; Value: 34; Range: 12-78; Units: U/L; Status: F Test: ALKALINE PHOSPHATASE; Value: 62; Range: 45-117; Units: U/L; Status: F Test: BILIRUBIN,TOTAL; Value: 0.7; Range: 0.2-1.0; Units: MG/DL; Status: F Test: BILIRUBIN,DIRECT; Value: 0.2; Range: 0.0-0.2; Units: MG/DL; Status: F Test: TOTAL PROTEIN; Value: 7.2; Range: 6.4-8.2; Units: GM/DL; Status: F Test: ALBUMIN; Value: 4.1; Range: 3.2-5.2; Units: GM/DL; Status: F Test: ALBUMIN/GLOBULIN RATIO; Value: 1.32; Range: 1.00-1.93; Status: F Lab Order: Salicylate Level; SPEC'M 07/17/16 12:29 Test: SALICYLATE LEVEL; Value: < 1.7; Range: 5.0-30.0; Abnormal: Below low normal; Units: MG/DL; Status: F Lab Order: Thyroid Stimulating Hormone; SPEC'M 07/17/16 12:29 Test: THYROID STIMULATING HORMONE; Value: 0.895; Range: 0.358-3.740; Units: uIU/ML; Status: F Outcome: 13:38 Decision to Hospitalize by Provider. 16:47 Discharge Assessment: patient administered narcotics - no. The following High Risk jf3 Discharge criteria are identified: None. Admitted to Psych accompanied by tech, via wheelchair, with chart. Condition: stable. No special radiology studies were completed. Property secured with FARSHAD Ashraf. 16:50 Patient left the ED. jf3 Signatures: Francisco Mclaughlin MD MD pc Anderson, Cathy, PSA PSA Chikis Trent mm15 Avery Christianson PCA [facility] Devin Emanuel RN RN jf3 Chart Complete NAY
[2016-07-19 18:00] VITALS: BP 125/77
[2016-07-19] MEDS: VENLAFAXINE **XR** 75MG CAPSULE PO SCH (20:04)
[2016-07-19] MEDS: ZIPRASIDONE 20MG CAPSULE (GEODON) PO SCH (20:05)
[2016-07-19] MEDS: BENAZEPRIL 20 MG TAB PO SCH (20:07)
--- NOTE | 2016-07-19 20:31 | MHHPE ---
DATE OF ADMISSION: 07/18/2016 CURRENT MEDICATIONS: - Abilify 10 mg nightly - Effexor XR 150 mg nightly - Geodon 80 mg every morning, 120 mg nightly - Ativan 1 mg twice a day CHIEF COMPLAINT: Mood swings. HISTORY OF THE PRESENT ILLNESS: This is a 56-year-old white female, single, living with her elderly mother and her sister Briana, age 67. The patient reports an involved conspiracy regarding her sister Briana and her mother. She feels that her sister is brainwashing her mother to be mean to her. The patient feels that she can read people's minds. She feels paranoid about the sister and has been so since the sister moved in in August 2015. The patient had a similar episode of psychosis back this October and November and was hospitalized here at [facility] ([facility] The patient does report some depressive symptoms. Her appetite is poor. She is trying to lose weight. The patient was sleeping poorly until Abilify was started about 4 months ago. Her sleep is much better since then. She claims that life is "dark" and that she is "dying." She does admit to a bad temper where she can get angry and irritable and raise her voice. She feels that her family is trying to kill her and steal money from her mother's and father's estate. The patient claims to take her medications but actual medication compliance is unknown. Staff have been recommending that she consider the Abilify monthly injection, which she is open to. She has liked the Abilify so far, claiming that it does help with her insomnia and with her "sanity." PAST PSYCHIATRIC HISTORY: The patient has had a long psychiatric history with at least 10-12 psychiatric hospitalizations over the years. She has worked with Dr. Joseph for approximately 17 years. Before that, she worked with Dr. Rucker and other providers in the community. Previous trials of lithium were poorly tolerated as it gave her severe acne and tremors. Depakote caused weight gain. Seroquel put her at risk for cataracts. Zyprexa gave her weight gain. She is relatively comfortable with her current psychotropics. MEDICAL HISTORY: Hypertension. Glaucoma. Arthritis. ALLERGIES: SULFA, TETRACYCLINE, TEGRETOL, ERYTHROMYCIN, PENICILLINS, LAMICTAL. LEGAL ISSUES: Patient denies. CHEMICAL DEPENDENCY: None for decades. SOCIAL HISTORY: Patient born and raised in the [place] area. She has a high school degree. She graduated college from [employer] and returned to [place]. 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 She is currently on social security. Her father is for 2 years. Her mother is aged and apparently has Alzheimer's disease, per the patient. The patient is paranoid about her older sister as mentioned above. Her brother Reinier also lives in the [facility]. Relationship with him is good. FAMILY PSYCHIATRIC HISTORY: She thinks her father was bipolar and that her uncle and cousin also have mental illness. MENTAL STATUS EXAM: The patient is alert and oriented. She is cooperative. No signs of agitation. Speech is quite loose, however, tangential and pressured. She rambles on from topic to topic. She does have significant paranoia with a report that she can read people's minds. She does report depression as well. She denies hearing voices but does have delusional beliefs. Insight appears poor. Judgment appears poor. She is a potential danger to self and/or others due to her poor insight and poor impulse control. No signs of organicity. ASSESSMENT: The patient has a prominent psychotic condition with also affective components. Recent addition of Abilify apparently has been helpful per the patient. She may be a candidate for a monthly injection. DIAGNOSIS: Bipolar disorder, depressed with psychotic features versus schizoaffective disorder, depressed. PROBLEM LIST: Risk for suicide. Depression. Altered thoughts. PLAN: Continue psychotropics. Assess QTc interval as the patient is on two antipsychotics. Possible trial on Abilify Maintena monthly injection. Treatment plan to be coordinated with her outpatient psychiatrist, Dr. Joseph.
[2016-07-19] MEDS: LATANOPROST 0.005% OPHTH SOLN 2.5 ML OU SCH (20:45)
[2016-07-20 06:54] VITALS: BP 139/93
[2016-07-20] MEDS: LORazepam 1 MG TAB PO SCH ×2 (08:01→20:29)
[2016-07-20] MEDS: ZIPRASIDONE 80 MG CAP (GEODON) PO SCH (08:01)
[2016-07-20] MEDS: BRIMONIDINE 0.15% OPHTH SOLN 5 ML OU SCH ×2 (08:01→20:28)
[2016-07-20 18:00] VITALS: BP 143/89
[2016-07-20] MEDS: ARIPiprazole 10 MG TAB PO SCH (20:29)
[2016-07-20] MEDS: ZIPRASIDONE 20MG CAPSULE (GEODON) PO SCH (20:29)
[2016-07-20] MEDS: LATANOPROST 0.005% OPHTH SOLN 2.5 ML OU SCH (20:29)
[2016-07-20] MEDS: VENLAFAXINE **XR** 75MG CAPSULE PO SCH (20:29)
[2016-07-20] MEDS: BENAZEPRIL 20 MG TAB PO SCH (20:33)
[2016-07-21 06:28] VITALS: BP 131/83
--- NOTE | 2016-07-21 08:02 | IPN ---
DATE: 07/19/2016 VITAL SIGNS: Temperature 98.6, pulse 103, respirations 16, blood pressure 159/92. CURRENT MEDICATIONS: - Abilify 10 mg at bedtime - Effexor XR 150 mg at bedtime - Ativan 1 mg twice a day - Geodon 80 mg every morning with food - Geodon 120 mg at bedtime with food - trazodone 50 mg at bedtime as needed PSYCH HISTORY: The patient reports her appetite is good. She reports she slept well last night. She still feels quite anxious however. She feels "restless and antsy". She did not have any visitors last night, but her mother did call today. They had a nice phone contact. The patient is still quite delusional however about her family. For example, she claims that her 80-year-old mother is having affairs and sleeping around while in her late 70s and early 80s while the patient's father was still alive. She is also delusional about her sister, claiming her sister wants to steal all the family money and break up the family. The patient states that she felt quite depressed while being at home with her family and that her mood was quite "dark". She felt that she was going to from the stress of living there. She feels comfortable staying here on the inpatient mental health unit over [place]. We discussed the Abilify Maintena injection. Dr. Joseph had agreed with this option. Dr. Joseph was consulted by phone regarding the patient's history and various treatment options. The patient was quite willing also to go on a monthly injection. MENTAL STATUS EXAMINATION: The patient is alert, oriented and cooperative. She has good eye contact. She denies any current depression. She denies being homicidal or suicidal. She denies hearing voices, but does report significant delusional beliefs that appear quite fixed. She is paranoid about various family members as mentioned above. No signs of cognitive deficits. IMPRESSION: Schizoaffective disorder, depressed. PLAN: Add Abilify Maintena 400 mg IM. No change in other psychotropics. The patient encouraged to be involved in hospital milieu therapy program.
[2016-07-21] MEDS: LORazepam 1 MG TAB PO SCH ×2 (08:09→20:00)
[2016-07-21] MEDS: ZIPRASIDONE 80 MG CAP (GEODON) PO SCH (08:09)
[2016-07-21] MEDS: BRIMONIDINE 0.15% OPHTH SOLN 5 ML OU SCH ×2 (08:10→20:02)
[2016-07-21 18:00] VITALS: BP 143/76
[2016-07-21] MEDS: VENLAFAXINE **XR** 75MG CAPSULE PO SCH (20:00)
[2016-07-21] MEDS: ZIPRASIDONE 20MG CAPSULE (GEODON) PO SCH (20:00)
[2016-07-21] MEDS: ARIPiprazole 10 MG TAB PO SCH (20:00)
[2016-07-21] MEDS: BENAZEPRIL 20 MG TAB PO SCH (20:01)
[2016-07-21] MEDS: LATANOPROST 0.005% OPHTH SOLN 2.5 ML OU SCH (20:02)
[2016-07-22 06:00] VITALS: BP 129/82
[2016-07-22] MEDS: ZIPRASIDONE 80 MG CAP (GEODON) PO SCH (08:09)
[2016-07-22] MEDS: BRIMONIDINE 0.15% OPHTH SOLN 5 ML OU SCH ×2 (08:09→20:11)
[2016-07-22] MEDS: LORazepam 1 MG TAB PO SCH ×2 (08:09→20:11)
[2016-07-22 18:00] VITALS: BP 156/90
[2016-07-22] MEDS: VENLAFAXINE **XR** 75MG CAPSULE PO SCH (20:11)
[2016-07-22] MEDS: ZIPRASIDONE 20MG CAPSULE (GEODON) PO SCH (20:11)
[2016-07-22] MEDS: ARIPiprazole 10 MG TAB PO SCH (20:11)
[2016-07-22] MEDS: BENAZEPRIL 20 MG TAB PO SCH (20:13)
[2016-07-22 21:15] VITALS: BP 154/86
[2016-07-22] MEDS: LATANOPROST 0.005% OPHTH SOLN 2.5 ML OU SCH (21:15)
[2016-07-23 07:16] VITALS: BP 140/98
[2016-07-23] MEDS: ZIPRASIDONE 80 MG CAP (GEODON) PO SCH (08:17)
[2016-07-23] MEDS: BRIMONIDINE 0.15% OPHTH SOLN 5 ML OU SCH ×2 (08:17→20:04)
[2016-07-23] MEDS: LORazepam 1 MG TAB PO SCH (08:17)
--- NOTE | 2016-07-23 09:46 | IPN ---
DATE: 07/21/2016 VITAL SIGNS: Temperature 97, pulse 80, respiratory rate 18, blood pressure 131/83. CURRENT MEDICATIONS: - Abilify 10 mg at bedtime - Effexor XR 150 mg at bedtime - Ativan 1 mg twice a day - Geodon 200 mg daily in divided doses - benazepril - trazodone as needed HISTORY OF PRESENTING ILLNESS: The patient states she is happy with the current medications. She had some visitors today including her mother and sister and she was happy. She states she is not better yet. She states she is aware that Geodon is fairly high doses, but she states that is why they put her on Abilify with a view to decreasing Geodon as an outpatient, under Dr. Joseph. She does not want to make any medication changes today. MENTAL STATUS EXAMINATION: 56-year-old Filipino female, tall height, average build. Pleasant, calm and cooperative. Denies suicidal ideation, homicidal ideation, or delusions. Perception denies auditory or visual hallucinations. PLAN: The patient seems to be improving slowing with current medication regime. Continue to monitor mental status response to medications.
[2016-07-23 18:00] VITALS: BP 150/98
--- NOTE | 2016-07-23 19:21 | IPN ---
DATE: 07/20/2016 VITAL SIGNS: Temperature 97.9, pulse 85, respiratory rate 18, blood pressure 139/93. CURRENT MEDICATIONS: - Abilify 10 mg at bedtime - Effexor XR 150 mg at bedtime - Ativan 1 mg twice a day - Geodon 80 mg every morning and 120 mg at bedtime - trazodone as needed HISTORY OF PRESENTING ILLNESS: The patient states she is doing better. She states she likes the current medication. She does not feel she is ready for discharge. She states she is starting to feel some benefit from the medication. She states she is sleeping well with some reduction in anxiety is noted. She stated that Dr. Joseph "saved my life again." She is somewhat intrusive with personal questions. MENTAL STATUS EXAMINATION: 56-year-old [place] female, tall height, average build. Pleasant, calm, cooperative. Speech tangential, pressured, over familiar. Insight and judgment" poor. Impco: Poor. ASSESSMENT: Patient is a 56-year-old [place] female hospitalized for psychosis with affective component. PLAN: The patient will continue to be monitored for response to recent medication changes. Long acting injection is being considered for her. Electrocardiogram done recently on 07/18 showed QTC at 426, which was normal.
[2016-07-23] MEDS: VENLAFAXINE **XR** 75MG CAPSULE PO SCH (20:03)
[2016-07-23] MEDS: LORazepam 0.5 MG TAB PO SCH (20:04)
[2016-07-23] MEDS: ZIPRASIDONE 20MG CAPSULE (GEODON) PO SCH (20:04)
[2016-07-23] MEDS: ARIPiprazole 10 MG TAB PO SCH (20:04)
[2016-07-23] MEDS: BENAZEPRIL 20 MG TAB PO SCH (20:06)
[2016-07-23] MEDS: LATANOPROST 0.005% OPHTH SOLN 2.5 ML OU SCH (21:01)
[2016-07-24 06:00] VITALS: BP 154/93
[2016-07-24 07:51] VITALS: BP 160/100
[2016-07-24] MEDS: ZIPRASIDONE 20MG CAPSULE (GEODON) PO SCH ×2 (07:57→20:31)
[2016-07-24] MEDS: BRIMONIDINE 0.15% OPHTH SOLN 5 ML OU SCH ×2 (08:01→20:31)
[2016-07-24] MEDS: LORazepam 0.5 MG TAB PO SCH ×2 (08:01→20:31)
--- NOTE | 2016-07-24 13:30 | IPN ---
DATE OF SERVICE: 07/23/2016 VITAL SIGNS: Temperature 95.9, pulse 73, respirations 18, blood pressure 140/98. CURRENT MEDICATIONS: - Geodon 80 mg every morning, 120 mg nightly with food - Ativan 1 mg twice a day - Abilify 10 mg nightly - Effexor XR 150 mg nightly - trazodone 50 mg nightly as needed PSYCHIATRIC HISTORY: Patient reports her appetite is good. She slept well last night. She is complaining of memory issues, however. She complains of short-term memory. She asked about her medications, which might be causing this. Ativan is the likely culprit. She is willing to start to wean off of it gradually. Her brother and mother did come visiting over the Holiday weekend. They were quite supportive. She tolerated it well. She is still quite paranoid about her sister, however. She describes her sister as being "like a snake," and has snake-like facial features. She does not trust her. On a positive note, the patient is reporting more interest in moving out of the house and getting her own apartment with the help [facility] One potential problem, however, is that she has 300 pairs of shoes. Patient did get her Abilify monthly injection over the weekend and tolerated it well. We discussed starting to taper off the Geodon, as she is currently on two antipsychotics. She feels comfortable with this treatment plan. MENTAL STATUS EXAMINATION: Patient is alert, oriented and cooperative. She denies feeling depressed, homicidal or suicidal. She is not hearing voices but does still report significant paranoid delusional beliefs. No signs of organicity. Insight and judgment are limited. IMPRESSION: Schizoaffective disorder with history of depression. PLAN: Reduce morning dose of Geodon from 80 mg down to 40 mg every morning, Ativan reduce to 0.5 mg twice a day.
[2016-07-24 18:00] VITALS: BP 140/89
[2016-07-24] MEDS: ARIPiprazole 10 MG TAB PO SCH (20:30)
[2016-07-24] MEDS: VENLAFAXINE **XR** 75MG CAPSULE PO SCH (20:31)
[2016-07-24] MEDS: BENAZEPRIL 20 MG TAB PO SCH (20:32)
[2016-07-24] MEDS: LATANOPROST 0.005% OPHTH SOLN 2.5 ML OU SCH (21:05)
[2016-07-25 06:14] VITALS: BP 153/99
--- NOTE | 2016-07-25 07:46 | IPN ---
DATE: 07/24/2016 VITAL SIGNS: Temperature 96.8, pulse 86, respirations 16, blood pressure 154/93. CURRENT MEDICATION: - Geodon 40 mg every morning and 120 mg at bedtime with food - Ativan 0.5 mg twice a day - Abilify 10 mg at bedtime - Effexor XR 150 mg at bedtime - trazodone 50 mg at bedtime as needed PSYCH HISTORY: The patient likes the fact that some of her psychotropics were reduced this morning. She feels more alert and less sedated. She is not as tired. She has been concerned about memory issues which could be linked to her benzodiazepine. She still reports paranoid ideation about her sister. For example, she thinks that her sister taps her telephone and any time she makes a phone call that her sister is listening in. She is speaking frequently to her mother. Her girlfriend is visiting, which she appreciates. She states that her mood is improved. She is not as depressed. She finds her medication helpful. She feels comfortable reducing the Geodon as well now that she is on two antipsychotics. MENTAL STATUS EXAMINATION: The patient is alert, oriented and cooperative. Depression is improved. She is not homicidal or suicidal. She denies hearing voices. Paranoia is still present however. As mentioned above, insight and judgment remain limited. IMPRESSION: Schizoaffective disorder with history of depression. PLAN: Continue current psychotropics.
[2016-07-25] MEDS: LORazepam 0.5 MG TAB PO SCH ×2 (08:10→20:11)
[2016-07-25] MEDS: ZIPRASIDONE 20MG CAPSULE (GEODON) PO SCH ×2 (08:11→20:12)
[2016-07-25] MEDS: BRIMONIDINE 0.15% OPHTH SOLN 5 ML OU SCH ×2 (08:11→20:13)
[2016-07-25 18:00] VITALS: BP 132/74
[2016-07-25] MEDS: VENLAFAXINE **XR** 75MG CAPSULE PO SCH (20:11)
[2016-07-25] MEDS: ARIPiprazole 10 MG TAB PO SCH (20:11)
[2016-07-25] MEDS: BENAZEPRIL 20 MG TAB PO SCH (20:16)
[2016-07-25] MEDS: LATANOPROST 0.005% OPHTH SOLN 2.5 ML OU SCH (21:03)
[2016-07-26 06:00] VITALS: BP 139/93
[2016-07-26] MEDS: BRIMONIDINE 0.15% OPHTH SOLN 5 ML OU SCH ×2 (08:35→20:01)
[2016-07-26] MEDS: LORazepam 0.5 MG TAB PO SCH (08:35)
--- NOTE | 2016-07-26 13:01 | IPN ---
DATE: 07/25/2016 VITAL SIGNS: Temperature 96.5, pulse 76, respirations 18, blood pressure 153/99. 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 She also claims to have the practice skills of an erisa attorney. She claims that when she was in college she was asked to go to law school as she was so knowledgeable about the law. She claims that she cannot practice now, her psychiatrist skills, which makes her "heartbroken." She claims her appetite is good. She reports sleeping well at night. No major problems with her memory. Patient did show some poor judgment, giving her brother's phone number to another patient who wants to buy a car, her brother is in the car business apparently. Patient apologizes for this boundary error and appears to show some insight into how this was inappropriate. Patient feels comfortable cutting back further on the Geodon gradually. She has been in contact with her mother by phone. Her mother is supportive. MENTAL STATUS EXAMINATION: Patient is alert, oriented, and cooperative, style is pleasant. She denies current depression. She still reports psychotic symptoms however with paranoia and grandiose delusional beliefs. Insight appears poor. Judgment appears impaired. She denies hearing voices. IMPRESSION: Schizoaffective disorder. PLAN: Discontinue morning dose of Geodon. No change in other psychotropics.
[2016-07-26] MEDS: IBUPROFEN 400 MG TAB PO PRN (13:18)
[2016-07-26 18:00] VITALS: BP 130/84
[2016-07-26] MEDS: ARIPiprazole 10 MG TAB PO SCH (20:01)
[2016-07-26] MEDS: ZIPRASIDONE 20MG CAPSULE (GEODON) PO SCH (20:02)
[2016-07-26] MEDS: BENAZEPRIL 20 MG TAB PO SCH (20:02)
[2016-07-26] MEDS: VENLAFAXINE **XR** 75MG CAPSULE PO SCH (20:02)
[2016-07-26] MEDS: LATANOPROST 0.005% OPHTH SOLN 2.5 ML OU SCH (20:56)
[2016-07-26] MEDS ORDERED: BENZONATATE 100 MG CAP PO PRN (22:00)
[2016-07-27 06:38] VITALS: BP_SYST 134; BP_SYST 141; BP_DIAS 78; BP_DIAS 97
[2016-07-27 07:21] LABS: BASO # 0.1 K/mm3 (0.0-0.2); BASO % 1.3 % (0.0-1.0); EOS # 0.5 K/mm3 (0.0-0.50); LARGE UNSTAINED CELL # 0.2 K/mm3 (0.0-0.4); LARGE UNSTAINED CELL % 2.6 % (0.0-4.0); LYMPH # 2.8 K/mm3 (1.5-4.5); LYMPH % 28.8 % (24.0-44.0); MEAN CORPUSCULAR HEMOGLOBIN 28.7 pg (27.0-33.0); MEAN CORPUSCULAR HGB CONC 33.3 g/dl (32.0-36.5); MEAN CORPUSCULAR VOLUME 86.1 fl (80.0-96.0); MONO # 0.5 K/mm3 (0.0-0.8); NEUTROPHILS # 4.9 K/mm3 (1.8-7.7); NEUTROPHILS % 55.3 % (36.0-66.0); PLATELET COUNT, AUTOMATED 334 k/mm3 (150-450); RED CELL DISTRIBUTION WIDTH 13.1 % (11.5-14.5); WHITE BLOOD COUNT 8.9 K/mm3 (4.0-10.0)
[2016-07-27] MEDS: BRIMONIDINE 0.15% OPHTH SOLN 5 ML OU SCH ×2 (08:05→20:11)
[2016-07-27] MEDS: MOM 30ML SUSPENSION UDC PO PRN (08:44)
--- NOTE | 2016-07-27 09:30 | REP ---
Clinical: Acute cough . Comparison: 09/27/2014 . Technique: PA and lateral. Findings: The mediastinum and cardiac silhouette are normal. The lung thorpe are clear and without acute consolidation, effusion, or pneumothorax. The skeletal structures are intact and normal. Impression: 1. No acute cardiopulmonary process. Signed by Thierno Smith MD 07/27/2016 09:21 A
[2016-07-27] MEDS: IBUPROFEN 400 MG TAB PO PRN (14:51)
[2016-07-27 18:00] VITALS: BP 150/90
[2016-07-27] MEDS: ZIPRASIDONE 20MG CAPSULE (GEODON) PO SCH (20:10)
[2016-07-27] MEDS: ARIPiprazole 10 MG TAB PO SCH (20:10)
[2016-07-27] MEDS: LORazepam 0.5 MG TAB PO SCH (20:10)
[2016-07-27] MEDS: VENLAFAXINE **XR** 75MG CAPSULE PO SCH (20:10)
[2016-07-27] MEDS: BENAZEPRIL 20 MG TAB PO SCH (20:11)
[2016-07-27] MEDS: LATANOPROST 0.005% OPHTH SOLN 2.5 ML OU SCH (21:16)
[2016-07-28 06:22] VITALS: BP 147/84
[2016-07-28] MEDS: BRIMONIDINE 0.15% OPHTH SOLN 5 ML OU SCH ×2 (08:32→20:11)
--- NOTE | 2016-07-28 09:57 | IPN ---
DATE: 07/26/2016 VITAL SIGNS: Temperature 97.0, pulse 80, respirations 16, blood pressure 139/93. CURRENT MEDICATIONS: - Ativan 0.5 mg twice a day - Abilify 10 mg nightly - Effexor XR 150 mg nightly - Geodon 120 mg nightly with food - trazodone 50 mg nightly as needed PSYCHIATRIC HISTORY: The patient has some somatic symptoms today. She complains of a bad headache. She complains of chronic cough. This might be due to her Lotensin. She will discuss this with her medical provider. She had no problems discontinuing the morning dose of Geodon. She still has memory issues. She feels absent-minded quite a bit; this may be due to her Ativan. She feels comfortable discontinuing it. We will do so gradually. The patient is not voicing any grandiose ideas or ideation here today. No boundary issues noted today. Her mood appears more stable. She is still, however, paranoid about her sister. This appears to be a chronic delusional belief. MENTAL STATUS EXAMINATION: The patient is alert, oriented and cooperative. She denies current depression. She still reports paranoid ideation but no grandiose beliefs noted. Insight appears fair. Judgment appears fair. The patient is not hearing voices. IMPRESSION: Schizoaffective disorder. PLAN: Reduce Ativan, likely discharge next week back to home.
[2016-07-28 18:00] VITALS: BP 150/88
[2016-07-28] MEDS: ARIPiprazole 10 MG TAB PO SCH (20:11)
[2016-07-28] MEDS: VENLAFAXINE **XR** 75MG CAPSULE PO SCH (20:11)
[2016-07-28] MEDS: LORazepam 0.5 MG TAB PO SCH (20:12)
[2016-07-28] MEDS: ZIPRASIDONE 20MG CAPSULE (GEODON) PO SCH (20:12)
[2016-07-28] MEDS: BENAZEPRIL 20 MG TAB PO SCH (20:16)
[2016-07-28] MEDS: LATANOPROST 0.005% OPHTH SOLN 2.5 ML OU SCH (21:00)
[2016-07-29 06:00] VITALS: BP 166/94
[2016-07-29] MEDS: BRIMONIDINE 0.15% OPHTH SOLN 5 ML OU SCH ×2 (08:02→20:04)
[2016-07-29] MEDS: MOM 30ML SUSPENSION UDC PO PRN (11:40)
[2016-07-29 18:00] VITALS: BP 138/77
[2016-07-29] MEDS: ARIPiprazole 10 MG TAB PO SCH (20:03)
[2016-07-29] MEDS: VENLAFAXINE **XR** 75MG CAPSULE PO SCH (20:03)
[2016-07-29] MEDS: ZIPRASIDONE 20MG CAPSULE (GEODON) PO SCH (20:03)
[2016-07-29] MEDS: BENAZEPRIL 20 MG TAB PO SCH (20:06)
[2016-07-29] MEDS: LATANOPROST 0.005% OPHTH SOLN 2.5 ML OU SCH (21:04)
[2016-07-30 06:12] VITALS: BP 138/71
[2016-07-30] MEDS: BRIMONIDINE 0.15% OPHTH SOLN 5 ML OU SCH ×2 (08:05→20:01)
--- NOTE | 2016-07-30 08:50 | IPN ---
DATE: 07/29/2016 VITAL SIGNS: Temperature 95.7, pulse 85, respirations 20, blood pressure 166/94. CURRENT MEDICATIONS: - Effexor XR 150 mg at night - Abilify 10 mg by mouth at night - Geodon 120 mg at night with food - trazodone 50 mg at night as needed PSYCHIATRIC HISTORY: The patient states that her mood is better. Appetite is good. She is sleeping better, she reports. She still reports some paranoid ideation about her sister, however. She does not trust her. Now she does not want to return home to live with her mother and sister. She wants some type of housing situation. This will be reviewed with the landscape architect and planner tomorrow. MENTAL STATUS EXAMINATION: The patient is alert, oriented and cooperative. Mood and affect look good today. She still reports some paranoid ideation surrounding her sister. No other paranoid beliefs or grandiose ideation noted. Insight appears limited. Judgment appears fair. The patient denies hearing voices. No current signs of dangerousness. IMPRESSION: Schizoaffective disorder. PLAN: Continue psychotropics. Staff to work on discharge planning to safe environment.
--- NOTE | 2016-07-30 14:28 | IPN ---
DATE: 07/30/2016 VITAL SIGNS: Temperature 96.2, pulse 95, respirations 16, blood pressure 138/71. CURRENT MEDICATION: - Abilify 10 mg at bedtime - Effexor XR 150 mg at bedtime - Geodon 120 mg at bedtime with food - trazodone 50 mg at bedtime as needed PSYCH HISTORY: The patient woke up early this morning at about 3:00 a.m., but then did fall back asleep. She states that her mood is better. We discussed discharge planning. The patient has flipped flopped back and forth whether she is agreeable to returning home to live with her mother and her sister. The patient still reports some paranoid ideation about the sister. The staff have tried to get independent housing for the patient in the past and she has always refused. The patient's brother is able to come in this week for a family meeting. The patient feels comfortable with her current psychotropics. MENTAL STATUS EXAM: Mood and affect appear good. Anxiety less prominent. Paranoia appears minimal, but still exists. Insight and judgment are fair. She denies hearing voices. No signs of dangerousness. IMPRESSION: Schizoaffective disorder. PLAN: Continue current psychotropics. Staff to work on discharge plan.
[2016-07-30 15:23] LABS: POTASSIUM SERUM 4.5 MEQ/L (3.5-5.1)
[2016-07-30 18:00] VITALS: BP 128/69
[2016-07-30] MEDS: ARIPiprazole 10 MG TAB PO SCH (20:00)
[2016-07-30] MEDS: VENLAFAXINE **XR** 75MG CAPSULE PO SCH (20:00)
[2016-07-30] MEDS: ZIPRASIDONE 20MG CAPSULE (GEODON) PO SCH (20:01)
[2016-07-30] MEDS: BENAZEPRIL 20 MG TAB PO SCH (20:02)
[2016-07-30] MEDS: LATANOPROST 0.005% OPHTH SOLN 2.5 ML OU SCH (20:58)
[2016-07-31 06:38] VITALS: BP 156/86
[2016-07-31] MEDS: BRIMONIDINE 0.15% OPHTH SOLN 5 ML OU SCH ×2 (08:10→20:09)
[2016-07-31 18:00] VITALS: BP 142/84
--- NOTE | 2016-07-31 19:49 | IPN ---
DATE: 07/31/2016 VITAL SIGNS: Temperature 96.0, pulse 83, respirations 18, blood pressure 136/86. CURRENT MEDICATIONS: - Abilify 10 mg at bedtime - Effexor XR 150 mg at bedtime - Geodon 120 mg at bedtime with food - trazodone 50 mg at bedtime as needed PSYCHIATRIC HISTORY: Patient slept for 6 hours last night. She is happy with this. Her appetite is good. She is working on a diet, however. Her therapist came in today and is a big support. There is a family meeting tomorrow. Her brother is coming in. Her mother may come in too. The patient will be going home temporarily while referrals are in place for appropriate housing. The patient still feels paranoid about the sister but appears to show good judgment as far as avoiding any conflicts with her sibling. Patient likes her psychotropics. She feels comfortable with them. Patient is advised that she is still on two antipsychotics, which are considered polypharmacy. Her Geodon has been reduced. Her outpatient psychiatrist, Dr. Joseph, can reduce it gradually as appropriate. MENTAL STATUS EXAMINATION: Mood and affect remain good. Anxiety is minimal. Paranoia appears chronic but is low grade. She is not hearing any voices. Insight and judgment remain fair. No signs of being a danger to self or others. IMPRESSION: Schizoaffective disorder. PLAN: Continue current psychotropics.
[2016-07-31] MEDS: ZIPRASIDONE 20MG CAPSULE (GEODON) PO SCH (20:08)
[2016-07-31] MEDS: ARIPiprazole 10 MG TAB PO SCH (20:08)
[2016-07-31] MEDS: BENAZEPRIL 20 MG TAB PO SCH (20:09)
[2016-07-31] MEDS: VENLAFAXINE **XR** 75MG CAPSULE PO SCH (20:09)
[2016-07-31] MEDS: LATANOPROST 0.005% OPHTH SOLN 2.5 ML OU SCH (21:06)
[2016-08-01 06:00] VITALS: BP 143/84
[2016-08-01] MEDS: BRIMONIDINE 0.15% OPHTH SOLN 5 ML OU SCH ×2 (08:22→20:09)
[2016-08-01] MEDS ORDERED: ARIP10TAB PO (08:39)
[2016-08-01] MEDS ORDERED: GEOD60CA PO (08:39)
[2016-08-01] MEDS ORDERED: VENL150T PO (08:39)
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
[2016-08-01] MEDS: VENLAFAXINE **XR** 75MG CAPSULE PO SCH (20:07)
[2016-08-01] MEDS: ZIPRASIDONE 20MG CAPSULE (GEODON) PO SCH (20:07)
[2016-08-01] MEDS: ARIPiprazole 10 MG TAB PO SCH (20:07)
[2016-08-01 20:08] VITALS: BP 146/86
[2016-08-01] MEDS: BENAZEPRIL 20 MG TAB PO SCH (20:08)
[2016-08-01] MEDS: LATANOPROST 0.005% OPHTH SOLN 2.5 ML OU SCH (21:08)
[2016-08-02 06:29] VITALS: BP 132/86
[2016-08-02] MEDS: BRIMONIDINE 0.15% OPHTH SOLN 5 ML OU SCH (08:02)
--- NOTE | 2016-08-03 10:38 | MHDS ---
DATE OF ADMISSION: 07/17/2016 DATE OF DISCHARGE: 08/02/2016 VITAL SIGNS: Temperature 97.3, pulse 90, respiration rate 20, blood pressure 132/86. LABORATORIES: Complete blood count (CBC) and differential were within normal limits except for elevated monocytes 6.0%, eosinophils 6.0%, basophils 1.3%. Chemistry within normal limits except for creatinine at 1.07. Toxicology: Negative. DISCHARGE DIAGNOSIS: Schizoaffective disorder, depressed. DISCHARGE MEDICATIONS: - Abilify 10 mg nightly - Effexor XR 150 mg nightly - Geodon 120 mg nightly - Abilify Maintena 400 mg intramuscularly; next injection due on or about 08/19/2016 CHIEF COMPLAINT: "Life is dark." HISTORY OF PRESENT ILLNESS: This is a 56-year-old white female, single, living with her elderly mother and her sister, Briana. The patient reports an evolved conspiracy regarding her sister, Briana, and her mother. She feels that her sister is brainwashing her mother to be mean to her. Patient feels that she can read people's minds. She feels quite paranoid about the sister and has been so ever since she moved in to the house in 08/2015. Patient had a similar episode of psychosis back in November and was hospitalized here. Patient also reports some depressive symptoms. Her appetite is poor. She feels paranoid about her family. Patient reports that they are trying to kill her and to steal money from her mother's and father's estate. Staff have been urging that the patient consider the Abilify monthly injection, which she is open to. Patient has been on the ability for about four months now and has noticed some improvement in her "sanity." Patient has a long psychiatric history with at least 10 to 12 hospitalizations over the years. She has worked with Dr. Joseph for approximately 17 years. PROGRESS ON THE UNIT: Patient was quite paranoid upon admission. She was agreeable to the ability injection, which she tolerated well. Her case was discussed with Dr. Joseph, her outpatient psychiatrist. He had no major concerns about her medication and compliance, but did support the Abilify injection if the patient was so agreeable. Patient reports that she prefers the Abilify over the Geodon, so a cross taper is in slow process. She was able to discontinue the morning dose of Geodon without difficulty. She had concerns about her memory. Her Ativan was weaned off without any adverse effects. Patient continued to ventilate regarding her paranoid conspiracy, focusing on her sister. This did wax and wane over the course of the hospitalization, but gradually showed some improvement. At no point was she hearing voices. Her mood did improve. She became more active in the milieu, socializing with other patients and attending appropriate groups. She still had some antipathy about her sister, but patient was agreeable for a referral for an apartment. She does have a nurse outreach case manager who will assist her with the details. MENTAL STATUS EXAMINATION: At time of discharge, mood and affect were much improved. Anxiety was minimal. No signs of depression. She was not manic. She still reported some paranoid ideation about her sister, but no other concerns about conspiracies or paranoid beliefs were noted. Insight and judgment appeared much improved. No behavioral disturbances were noted. ASSESSMENT: Patient appears to have reached maximal hospital benefit. Patient feels comfortable with discharge plans. Patient does has polypharmacy, as mentioned above, but outpatient psychiatrist can gradually wean her off the Geodon. PLAN: Discharge today with outpatient mental health followup after her family meeting.
== END 2016-08-02 12:20 | disposition home or self-care (01) | DRG 750 ==
LOC: M ED 11:04 → M PSY 16:58
PROVIDERS: ADMIT Psychiatry & Neurology Psychiatry; ATTEND Psychiatry & Neurology Psychiatry
DX: F25.1 Schizoaffective disorder, depressive type (principal); Z79.899 Other long term (current) drug therapy; I10 Essential (primary) hypertension; M19.90 Unspecified osteoarthritis, unspecified site; J45.909 Unspecified asthma, uncomplicated; H40.9 Unspecified glaucoma

== ENCOUNTER → 2017-02-24 | Outpatient (REF) | payer MEDICARE, MEDICAID ==
[~2017-02-24] MED LIST changes: +ABIL10TA9 PO; +ABIL300I IM; +ABIL400I IM; +ALPH0.156 OU; +ARIP10TAB PO; -BENA20TA2 PO; +BENA20TA8 PO; +CALC600T31 PO; +LORA1TAB12 PO; +LOTE10TA11 PO; +PROAAER10 INH; +QUET1TAB9 PO; +QUET5TAB PO; +TRAZ50TA11 PO; +TRAZO50TA PO; +VENL150T PO; +VENL37.52 PO; -VENL37CA PO; +VENL75CA2 PO; +VITA-121 PO; +ZIPR80CA12 PO
[2017-02-24 12:54] LABS: MEAN CORPUSCULAR HEMOGLOBIN 29.2 pg (27.0-33.0); MEAN CORPUSCULAR HGB CONC 33.2 g/dl (32.0-36.5); MEAN CORPUSCULAR VOLUME 88.2 fl (80.0-96.0); RED CELL DISTRIBUTION WIDTH 12.7 % (11.5-14.5); WHITE BLOOD COUNT 5.6 K/mm3 (4.0-10.0)
[2017-02-24 13:15] LABS: ALBUMIN 3.5 GM/DL (3.2-5.2); ALBUMIN/GLOBULIN RATIO 1.09 (1.00-1.93); BILIRUBIN,TOTAL 0.5 MG/DL (0.2-1.0); CALCIUM LEVEL 9.1 MG/DL (8.5-10.1); CREATININE FOR GFR 1.07 MG/DL (0.55-1.02); FREE T4 0.84 NG/DL (0.76-1.46); GLOMERULAR FILTRATION RATE 56.3 (>51); POTASSIUM SERUM 4.9 MEQ/L (3.5-5.1); TOTAL PROTEIN 6.7 GM/DL (6.4-8.2)
== END ==
LOC: M SFHCADAM 08:02
PROVIDERS: ATTEND Family Medicine
DX: F31.9 Bipolar disorder, unspecified (principal); I11.9 Hypertensive heart disease without heart failure; Z13.220 Encounter for screening for lipoid disorders

== ENCOUNTER → 2017-03-24 | Outpatient (CLI) | payer MEDICARE, MEDICAID ==
--- NOTE | 2017-03-24 12:25 | REPMRS ---
Patient History The patient states she had a clinical breast exam in 02/2017. Patient is postmenopausal and is nulliparous. Family history of prostate cancer in father at age 50 or over and pancreatic cancer in maternal niece. Digital Woman Screen Mammo: March 24, 2017 - Exam #: [id number] Bilateral CC and MLO view(s) were taken. Technologist: Scarlett Sahni, Technologist Prior study comparison: March 22, 2016, digital woman screen mammo performed at [facility]. March 24, 2015, digital woman screen mammo performed at [facility]. March 24, 2014, digital woman screen mammo performed at [facility]. FINDINGS: There are scattered fibroglandular densities. There has been no change in the appearance of the mammogram from the prior studies. There is a mild amount of scattered fibroglandular density which is fairly symmetric. There is no interval development of dominant mass, architectural distortion, or clustered microcalcification suggestive of malignancy. ASSESSMENT: BI-RADS/ACR category 1 mammogram. Negative. Recommendation Routine screening mammogram in 1 year (for women over age 40). This mammogram was interpreted with the aid of an FDA-approved computer-aided dectection system. Electronically Signed By: Arnaud Zhou MD 03/24/17 0527
== END ==
LOC: M WHC 11:14
PROVIDERS: ATTEND Nurse Practitioner Family
DX: Z12.31 Encounter for screening mammogram for malignant neoplasm of breast (principal); Z78.0 Asymptomatic menopausal state; Z12.12 Encounter for screening for malignant neoplasm of rectum; Z92.89 Personal history of other medical treatment
CPT/HCPCS: 36415; 82270; 86803; 87389; G0101; G0123; G0202

== ENCOUNTER → 2017-03-24 | Outpatient (REF) | payer MEDICARE, MEDICAID | LOC: M SFHCWAGY 11:27 | PROVIDERS: ATTEND Nurse Practitioner Family | DX: Z11.59 Encounter for screening for other viral diseases (principal); Z11.4 Encounter for screening for human immunodeficiency virus [HIV]; Z12.12 Encounter for screening for malignant neoplasm of rectum; Z12.4 Encounter for screening for malignant neoplasm of cervix | CPT/HCPCS: 36415; 86803; 87389; G0123 ==

== ENCOUNTER → 2017-09-06 | Outpatient (REF) | payer MEDICARE, MEDICAID ==
[2017-09-06 18:17] LABS: HEMATOCRIT 40.1 % (36.0-47.0); HEMOGLOBIN 13.2 g/dl (12.0-16.0); MEAN CORPUSCULAR HEMOGLOBIN 29.1 pg (27.0-33.0); MEAN CORPUSCULAR HGB CONC 32.9 g/dl (32.0-36.5); MEAN CORPUSCULAR VOLUME 88.5 fl (80.0-96.0); PLATELET COUNT, AUTOMATED 247 10^3/uL (150-450); RED BLOOD COUNT 4.53 10^6/uL (4.00-5.40); RED CELL DISTRIBUTION WIDTH 13.1 % (11.5-14.5); WHITE BLOOD COUNT 7.5 10^3/uL (4.0-10.0)
[2017-09-06 18:25] LABS: ALBUMIN 3.9 GM/DL (3.2-5.2); ALBUMIN/GLOBULIN RATIO 1.15 (1.00-1.93); ALKALINE PHOSPHATASE 77 U/L (45-117); ALT/SGPT 27 U/L (12-78); ANION GAP 4 MEQ/L (8-16); AST/SGOT 18 U/L (7-37); BILIRUBIN,TOTAL 0.8 MG/DL (0.2-1.0); BLOOD UREA NITROGEN 16 MG/DL (7-18); CALCIUM LEVEL 9.1 MG/DL (8.5-10.1); CARBON DIOXIDE LEVEL 31 MEQ/L (21-32); CHLORIDE LEVEL 104 MEQ/L (98-107); CHOLESTEROL LEVEL 149 MG/DL (<200); CHOLESTEROL RISK RATIO 2.328 (<5); CREATININE FOR GFR 1.23 MG/DL (0.55-1.30); ESTIMATED AVERAGE GLUCOSE 117 MG/DL (60-110); GLOMERULAR FILTRATION RATE 47.9 (>51); GLUCOSE, FASTING 94 MG/DL (70-100); HDL CHOLESTEROL 64 MG/DL (>40); HEMOGLOBIN A1c 5.7 %; LDL CHOLESTEROL 67.4 MG/DL (<100); NON-HDL-C 85 MG/DL; POTASSIUM SERUM 4.6 MEQ/L (3.5-5.1); SODIUM LEVEL 139 MEQ/L (136-145); TOTAL PROTEIN 7.3 GM/DL (6.4-8.2); TRIGLYCERIDES LEVEL 88 MG/DL (<150)
== END ==
LOC: M SFHCADAM 10:25
DX: Z51.81 Encounter for therapeutic drug level monitoring (principal); Z79.899 Other long term (current) drug therapy; I11.9 Hypertensive heart disease without heart failure; F31.9 Bipolar disorder, unspecified
CPT/HCPCS: 84443

== ENCOUNTER → 2017-09-23 | Outpatient (REF) ==
[2017-09-24 10:11] LABS: RUBEOLA IgG ANTIBODY >300.0 AU/mL (Immune >29.9)
[2017-09-24 10:54] LABS: RUBELLA IgG QUALITATIVE SUSCEPTIBLE (IMMUNE)
== END ==
LOC: M LAB 10:14
DX: Z00.00 Encounter for general adult medical examination without abnormal findings (principal)

== ENCOUNTER → 2018-02-25 | Outpatient (REF) | payer MEDICARE, MEDICAID ==
[2018-02-25 13:13] LABS: HEMATOCRIT 40.7 % (36.0-47.0); HEMOGLOBIN 13.8 g/dl (12.0-15.5); MEAN CORPUSCULAR HEMOGLOBIN 28.8 pg (27.0-33.0); MEAN CORPUSCULAR HGB CONC 33.9 g/dl (32.0-36.5); MEAN CORPUSCULAR VOLUME 84.8 fl (80.0-96.0); PLATELET COUNT, AUTOMATED 288 10^3/uL (150-450); RED CELL DISTRIBUTION WIDTH 13.2 % (11.5-14.5); WHITE BLOOD COUNT 6.3 10^3/uL (4.0-10.0)
[2018-02-25 13:24] LABS: ALBUMIN 3.8 GM/DL (3.2-5.2); ALBUMIN/GLOBULIN RATIO 1.09 (1.00-1.93); ALKALINE PHOSPHATASE 71 U/L (45-117); ALT/SGPT 28 U/L (12-78); ANION GAP 7 MEQ/L (8-16); AST/SGOT 19 U/L (7-37); BILIRUBIN,TOTAL 1.4 MG/DL (0.2-1.0); BLOOD UREA NITROGEN 12 MG/DL (7-18); CALCIUM LEVEL 9.1 MG/DL (8.5-10.1); CARBON DIOXIDE LEVEL 28 MEQ/L (21-32); CHLORIDE LEVEL 101 MEQ/L (98-107); CHOLESTEROL LEVEL 166 MG/DL (<200); CHOLESTEROL RISK RATIO 2.721 (<5); CREATININE FOR GFR 1.04 MG/DL (0.55-1.30); FREE T4 0.85 NG/DL (0.76-1.46); GLOMERULAR FILTRATION RATE 57.9 (>51); GLUCOSE, FASTING 86 MG/DL (70-100); HDL CHOLESTEROL 61 MG/DL (>40); LDL CHOLESTEROL 82.8 MG/DL (<100); NON-HDL-C 105 MG/DL; POTASSIUM SERUM 4.8 MEQ/L (3.5-5.1); SODIUM LEVEL 136 MEQ/L (136-145); TOTAL PROTEIN 7.3 GM/DL (6.4-8.2); TRIGLYCERIDES LEVEL 111 MG/DL (<150)
[2018-02-25 13:32] LABS: ESTIMATED AVERAGE GLUCOSE 120 MG/DL (60-110); HEMOGLOBIN A1c 5.8 %
== END ==
LOC: M SFHCADAM 08:01
DX: Z51.81 Encounter for therapeutic drug level monitoring (principal); Z79.899 Other long term (current) drug therapy; I11.9 Hypertensive heart disease without heart failure; F31.9 Bipolar disorder, unspecified
CPT/HCPCS: 84443

== ENCOUNTER → 2018-03-05 | Outpatient (REF) | payer MEDICARE, MEDICAID | LOC: M SFHCWAGY 17:29 | DX: N76.3 Subacute and chronic vulvitis (principal) | CPT/HCPCS: 87086 ==

== ENCOUNTER → 2018-03-25 | Outpatient (CLI) | payer MEDICARE | LOC: M WHC 10:45 | DX: Z12.31 Encounter for screening mammogram for malignant neoplasm of breast (principal); Z01.419 Encounter for gynecological examination (general) (routine) without abnormal findings (principal); Z12.12 Encounter for screening for malignant neoplasm of rectum | CPT/HCPCS: 77067 ==

== ENCOUNTER → 2018-08-10 | Outpatient (REF) | payer MEDICARE, MEDICAID ==
[~2018-08-10] MED LIST changes: -AMLO5TAB2 PO; +AMLO5TAB6 PO; -EFFE150C PO; +EFFE150C2 PO; +EFFE75CA2 PO; -EFFE75CA75 PO; -LOTE10TA11 PO; +LOTE10TA13 PO; +TRAZ-160 PO; -TRAZ50TA11 PO
[2018-08-10 13:54] LABS: CALCIUM LEVEL 9.2 MG/DL (8.5-10.1); CREATININE FOR GFR 1.16 MG/DL (0.55-1.30); GLOMERULAR FILTRATION RATE 51.1 (>51); POTASSIUM SERUM 4.7 MEQ/L (3.5-5.1)
[2018-08-10 14:52] LABS: HEMOGLOBIN A1c 5.9 %
== END ==
LOC: M SFHCADAM 07:58
PROVIDERS: ATTEND Family Medicine
DX: Z51.81 Encounter for therapeutic drug level monitoring (principal); Z79.899 Other long term (current) drug therapy

== ENCOUNTER → 2019-01-09 | Outpatient (CLI) | payer MEDICARE, MEDICAID ==
[~2019-01-09] MED LIST changes: -ARIP10TAB PO; +ARIP1TAB PO; -TRAZ-160 PO; +TRAZ-252 PO; +TRAZ1TAB10 PO; -TRAZO50TA PO; -VENL150T PO; +VENL150T14 PO
[2019-01-09 17:08] LABS: ALBUMIN 4.1 GM/DL (3.2-5.2); BILIRUBIN,TOTAL 1.6 MG/DL (0.2-1.0); CALCIUM LEVEL 9.6 MG/DL (8.5-10.1); CHOLESTEROL RISK RATIO 2.666 (<5); CREATININE FOR GFR 1.2 MG/DL (0.55-1.30); FREE T4 0.96 NG/DL (0.76-1.46); GLOMERULAR FILTRATION RATE 49.1 (>51); POTASSIUM SERUM 4.4 MEQ/L (3.5-5.1); THYROID STIMULATING HORMONE 1.06 uIU/ML (0.358-3.740); TOTAL PROTEIN 7.6 GM/DL (6.4-8.2)
[2019-01-09 17:28] LABS: HEMATOCRIT 42.5 % (36.0-47.0); HEMOGLOBIN 13.8 g/dl (12.0-15.5); MEAN CORPUSCULAR HGB CONC 32.5 g/dl (32.0-36.5); MEAN CORPUSCULAR VOLUME 86.2 fl (80.0-96.0); PLATELET COUNT, AUTOMATED 327 10^3/uL (150-450); RED BLOOD COUNT 4.93 10^6/uL (4.00-5.40)
== END ==
LOC: M ADAMS 09:33
PROVIDERS: ATTEND Family Medicine
DX: Z13.220 Encounter for screening for lipoid disorders (principal); I11.9 Hypertensive heart disease without heart failure; F31.9 Bipolar disorder, unspecified

== ENCOUNTER → 2019-03-26 | Outpatient (REF) | payer MEDICARE, MEDICAID ==
[~2019-03-26] MED LIST changes: -QUET1TAB9 PO; +QUET200T2 PO
== END ==
LOC: M SFHCWAGY 11:31
PROVIDERS: ATTEND Nurse Practitioner Family
DX: Z12.4 Encounter for screening for malignant neoplasm of cervix (principal)

== ENCOUNTER → 2019-03-26 | Outpatient (CLI) | payer MEDICARE ==
--- NOTE | 2019-03-26 14:13 | REPMRS ---
Patient History The patient states she had a clinical breast exam in 02/2019. Family history of prostate cancer at age 50 or over in father, pancreatic cancer in maternal niece. Digital Woman Screen Mammo: March 26, 2019 - Exam #: [id number] Bilateral CC and MLO view(s) were taken. Technologist: Yuli Parkinson, Technologist Prior study comparison: March 25, 2018, bilateral digital woman screen mammo performed at [facility]. March 24, 2017, digital woman screen mammo performed at [facility]. March 22, 2016, digital woman screen mammo performed at [facility]. FINDINGS: There are scattered fibroglandular densities. There has been no change in the appearance of the mammogram from the prior studies. There is a mild amount of scattered fibroglandular density which is fairly symmetric. There is no interval development of dominant mass, architectural distortion, or grouped microcalcification suggestive of malignancy. 3-D tomosynthesis shows no additional findings. Assessment: BI-RADS/ACR category 1 mammogram. Negative Mammogram. Recommendation Routine screening mammogram of both breasts in 1 year (for women over age 40). This patient's Lifetime Breast Cancer Risk is estimated at 11.3 %. This mammogram was interpreted with the aid of an FDA-approved computer-aided dectection system. Electronically Signed By: Arnaud Zhou MD 03/26/19 1798
== END ==
LOC: M WHC 10:52
PROVIDERS: ATTEND Nurse Practitioner Family
DX: Z01.419 Encounter for gynecological examination (general) (routine) without abnormal findings (principal); Z12.31 Encounter for screening mammogram for malignant neoplasm of breast; Z80.42 Family history of malignant neoplasm of prostate
CPT/HCPCS: 77063; 77067; G0101; G0123

== ENCOUNTER → 2019-06-15 | Outpatient (REF) | payer MEDICARE, MEDICAID ==
[2019-06-15 18:14] LABS: CALCIUM LEVEL 9.7 MG/DL (8.5-10.1); CREATININE FOR GFR 1.18 MG/DL (0.55-1.30); GLOMERULAR FILTRATION RATE 49.9 (>51); POTASSIUM SERUM 4.3 MEQ/L (3.5-5.1)
== END ==
LOC: M SFHCADAM 12:01
PROVIDERS: ATTEND Physician Assistant Medical
DX: I95.9 Hypotension, unspecified (principal); R55 Syncope and collapse
CPT/HCPCS: 80048; G0463

== ENCOUNTER → 2019-08-04 | Outpatient (REF) | payer MEDICARE, MEDICAID ==
[2019-08-04 12:50] LABS: HEMATOCRIT 42.1 % (36.0-47.0); HEMOGLOBIN 13.4 g/dl (12.0-15.5); MEAN CORPUSCULAR HEMOGLOBIN 27.5 pg (27.0-33.0); MEAN CORPUSCULAR HGB CONC 31.8 g/dl (32.0-36.5); MEAN CORPUSCULAR VOLUME 86.3 fl (80.0-96.0); PLATELET COUNT, AUTOMATED 278 10^3/uL (150-450); RED BLOOD COUNT 4.88 10^6/uL (4.00-5.40); WHITE BLOOD COUNT 6.6 10^3/uL (4.0-10.0)
[2019-08-04 13:08] LABS: ALBUMIN 3.9 GM/DL (3.2-5.2); CHOLESTEROL RISK RATIO 2.818 (<5); CREATININE FOR GFR 1.18 MG/DL (0.55-1.30); FREE T4 0.84 NG/DL (0.76-1.46); GLOMERULAR FILTRATION RATE 49.9 (>51); POTASSIUM SERUM 3.3 MEQ/L (3.5-5.1); THYROID STIMULATING HORMONE 1.97 uIU/ML (0.358-3.740); TOTAL PROTEIN 7.1 GM/DL (6.4-8.2)
== END ==
LOC: M SFHCADAM 08:09
PROVIDERS: ATTEND Family Medicine
DX: F31.9 Bipolar disorder, unspecified (principal); I11.9 Hypertensive heart disease without heart failure; Z13.220 Encounter for screening for lipoid disorders

== ENCOUNTER → 2019-11-10 | Outpatient (REF) | payer MEDICARE, MEDICAID ==
[~2019-11-10] MED LIST changes: -LORA1TAB12 PO; +LORA1TAB4 PO
[2019-11-10 13:02] LABS: CALCIUM LEVEL 9.8 MG/DL (8.5-10.1); CREATININE FOR GFR 1.22 MG/DL (0.55-1.30); MAGNESIUM LEVEL 2.1 MG/DL (1.8-2.4); POTASSIUM SERUM 4.3 MEQ/L (3.5-5.1)
== END ==
LOC: M SFHCADAM 07:38
PROVIDERS: ATTEND Family Medicine
DX: E87.6 Hypokalemia (principal)

== ENCOUNTER → 2019-12-06 | Outpatient (REF) | payer MEDICARE, MEDICAID | LOC: M SFHCWAGY 17:08 | PROVIDERS: ATTEND Nurse Practitioner Family | DX: R35.0 Frequency of micturition (principal) | CPT/HCPCS: 81002; 87086; 87210; G0463 ==

== ENCOUNTER → 2019-12-10 | Outpatient (CLI) | payer MEDICARE, MEDICAID ==
--- NOTE | 2019-12-10 12:51 | REP ---
PELVIC ULTRASOUND: Real-time sonographic evaluation of pelvis performed utilizing transabdominal and endovaginal technique. Bladder measures 10.9 x 8.0 x 11.0 cm. Uterus measures 5.2 x 1.5 x 4.0 cm. Endometrial thickness 2 mm throughout much of the endometrial region with a well-defined transitional zone. However, posteriorly at the level of the midbody of the uterus there is focal endometrial thickening measuring 4 x 3 x 5 mm. Differential diagnosis would include an endometrial polypoid lesion or focal adenomyosis. No endometrial fluid is seen. Ovaries are normal in size and echotexture, right ovary measuring 1.7 x 1.0 x 0.9 cm, and left ovary 0.9 x 1.2 x 0.7 cm. There is no adnexal mass or free fluid. There is no evidence of ovarian torsion with duplex Doppler evaluation. IMPRESSION: Very small amount of fluid in the cervical canal. Focal endometrial thickening posteriorly in the midbody of the uterus measuring 4 x 3 x 5 mm. Differential diagnosis would include small polypoid lesion of the endometrium or focal adenomyosis. Remainder of the endometrium is normal in thickness.
== END ==
LOC: M WHC 09:16
PROVIDERS: ATTEND Nurse Practitioner Family
DX: N95.0 Postmenopausal bleeding (principal)

== ENCOUNTER → 2020-01-24 | Outpatient (CLI) | payer MEDICARE, MEDICAID ==
--- NOTE | 2020-01-24 09:47 | REP ---
Clinical: History of endometrial polyp. Technique: Transabdominal pelvic ultrasound followed by transvaginal examination for better evaluation of the endometrium and adnexa with color evaluation of the ovaries. Comparison: 12/10/2019. Findings: Bladder is normal and measures 11.9 x 6.4 x 10.4 cm. Normal anteverted uterus measures 5.0 x 1.8 x 3.1 cm. Endometrial complex measures 2.3 mm thickness. No discrete uterine or endometrial abnormality identified. No obvious endometrial polyp noted. The bilateral ovaries are normal in appearance and vascularity without torsion. Right ovary measures 1.5 x 0.9 x 1.8 cm. Left ovary measures 1.0 x 1.0 x 0.8 cm. No pelvic free fluid or adnexal mass lesion. Impression: Normal pelvic ultrasound. No obvious endometrial polyp or abnormality.
== END ==
LOC: M WHC 08:32
PROVIDERS: ATTEND Obstetrics & Gynecology
DX: N85.4 Malposition of uterus (principal)

== ENCOUNTER → 2020-03-31 | Outpatient (REF) | payer MEDICARE, MEDICAID ==
[~2020-03-31] MED LIST changes: +AMLO1TAB24 PO; -AMLO5TAB6 PO
[2020-03-31 19:20] LABS: CALCIUM LEVEL 9.2 MG/DL (8.8-10.2); CREATININE FOR GFR 1.19 MG/DL (0.55-1.30); GLOMERULAR FILTRATION RATE 49.3 (>45)
== END ==
LOC: M LABDRWAD 17:03
PROVIDERS: ATTEND Family Medicine
DX: I11.9 Hypertensive heart disease without heart failure (principal)

== ENCOUNTER → 2020-04-20 | Outpatient (CLI) | payer MEDICARE ==
--- NOTE | 2020-04-20 15:44 | REPMRS ---
Patient History The patient states she had a clinical breast exam in March 2020.Family history of prostate cancer at age 50 or over in father, pancreatic cancer in maternal niece. Digital Woman Screen Mammo: April 20, 2020 - Exam #: [id number] Bilateral CC and MLO view(s) were taken. Technologist: Shannon Ramirez, Technologist Prior study comparison: March 26, 2019, bilateral digital woman screen mammo performed at [facility]. March 25, 2018, bilateral digital woman screen mammo performed at [facility]. March 24, 2017, digital woman screen mammo performed at [facility]. FINDINGS: The breast tissue is almost entirely fat. The Volpara volumetric breast density category is: A. There has been no change in the appearance of the mammogram from the prior studies. There is no interval development of dominant mass, architectural distortion, or grouped microcalcification typical of malignancy. 3-D tomosynthesis shows no additional findings. Assessment: BI-RADS/ACR category 1 mammogram. Negative Mammogram. Recommendation Routine screening mammogram of both breasts in 1 year (for women over age 40). This patient's Lifetime Breast Cancer RIsk is estimated at 10.9 %. This mammogram was interpreted with the aid of an FDA-approved computer-aided dectection system. Electronically Signed By: Arnaud Zhou MD 04/20/20 0946
== END ==
LOC: M WHC 08:05
PROVIDERS: ATTEND Nurse Practitioner Family
DX: Z12.31 Encounter for screening mammogram for malignant neoplasm of breast (principal); Z80.42 Family history of malignant neoplasm of prostate; F31.74 Bipolar disorder, in full remission, most recent episode manic

== ENCOUNTER → 2020-12-27 | Outpatient (REF) | payer MEDICARE, MEDICAID ==
[~2020-12-27] MED LIST changes: +QUET50TA3 PO; -QUET5TAB PO
[2020-12-27 11:23] LABS: HEMATOCRIT 42.1 % (36.0-47.0); HEMOGLOBIN 13.5 g/dl (12.0-15.5); MEAN CORPUSCULAR HEMOGLOBIN 27.7 pg (27.0-33.0); MEAN CORPUSCULAR HGB CONC 32.1 g/dl (32.0-36.5); MEAN CORPUSCULAR VOLUME 86.4 fl (80.0-96.0); PLATELET COUNT, AUTOMATED 273 10^3/uL (150-450); RED BLOOD COUNT 4.87 10^6/uL (4.00-5.40); WHITE BLOOD COUNT 6.3 10^3/uL (4.0-10.0)
[2020-12-27 12:03] LABS: ALBUMIN 3.7 GM/DL (3.2-5.2); BILIRUBIN,TOTAL 0.8 MG/DL (0.2-1.0); CALCIUM LEVEL 9.5 MG/DL (8.8-10.2); CREATININE FOR GFR 1.1 MG/DL (0.55-1.30); GLOMERULAR FILTRATION RATE 53.9 (>45); POTASSIUM SERUM 4.3 MEQ/L (3.5-5.1); TOTAL PROTEIN 7.1 GM/DL (6.4-8.2)
== END ==
LOC: M SFHCADAM 07:55
PROVIDERS: ATTEND Family Medicine
DX: M94.0 Chondrocostal junction syndrome [Tietze] (principal); J45.20 Mild intermittent asthma, uncomplicated; I11.9 Hypertensive heart disease without heart failure

== ENCOUNTER → 2021-01-12 | Outpatient (CLI) | payer MEDICARE, MEDICAID ==
[~2021-01-12] MED LIST changes: +CALC500C16 PO; +CHLO125TA PO; +OPTI0.5D5 OU
== END ==
LOC: M LABSMTC 09:48
PROVIDERS: ATTEND Anesthesiology
DX: Z01.812 Encounter for preprocedural laboratory examination (principal); Z20.822 Contact with and (suspected) exposure to COVID-19

== ENCOUNTER 2021-01-17 05:59 | Day surgery (SDC) | payer MEDICARE, MEDICAID ==
[~2021-01-17] VITALS: Ht 177.8 cm; Wt 88.9 kg
[2021-01-17] MEDS ORDERED: LIDOCAINE 1% MDV 20ML VIAL SQ PRN (06:00)
[2021-01-17] MEDS ORDERED: CLINDAMYCIN 600 MG in IV 1 EA IV ONE (06:00)
[2021-01-17] MEDS ORDERED: LR 1,000 ML IV ONE (06:00)
[2021-01-17] MEDS ORDERED: LIDOCAINE 2% 100MG/5ML SDV (FOR ANES.) As Ordered ONE (07:02)
[2021-01-17] MEDS ORDERED: propofoL 500 MG/50 ML VIAL As Ordered ONE (07:02)
[2021-01-17] MEDS ORDERED: ONDANSETRON 4MG/2ML VIAL As Ordered ONE (07:04)
[2021-01-17] MEDS ORDERED: dexameTHASONE 4 MG/ML 1ML VIAL (J1100 PER 1MG) As Ordered ONE ×2 (07:04→07:16)
[2021-01-17] MEDS ORDERED: MIDAZOLAM INJ 2MG/2ML VIAL (J2250 PER 1MG) As Ordered ONE (07:06)
[2021-01-17] MEDS ORDERED: fentaNYL 100 MCG/2 ML INJECTION (J3010) As Ordered ONE (07:07)
[2021-01-17] MEDS ORDERED: LIDOCAINE 1% MDV 20ML VIAL As Ordered ONE (07:16)
[2021-01-17] MEDS ORDERED: BUPIVACAINE HCL 0.5% 10ML VIAL As Ordered ONE (07:16)
[2021-01-17] MEDS ORDERED: ePHEDrine SULFATE 25 MG/5 ML(5MG/ML) SYRINGE As Ordered ONE ×2 (07:59→08:21)
[2021-01-17] MEDS ORDERED: PHENYLephrine 500MCG 5ML (100MCG/ML) SYRINGE As Ordered ONE ×2 (08:12→08:21)
[2021-01-17] MEDS ORDERED: HYDR-3713 PO (09:18)
[2021-01-17 09:23] VITALS: BP 109/57
--- NOTE | 2021-01-17 11:33 | RO ---
OPERATIVE NOTE DATE OF OPERATION: 01/17/2021 PREOPERATIVE DIAGNOSIS: Right foot bunion hallux valgus and 2nd hammertoe metatarsal deformity. POSTOPERATIVE DIAGNOSIS: Right foot bunion hallux valgus and 2nd hammertoe metatarsal deformity. PROCEDURE: Right foot bunionectomy with 1st metatarsal osteotomy, Douglas osteotomy; 2nd metatarsal shortening osteotomy and hammertoe correction. SURGEON: Kody Mitchell DPM COMPLIANCE ENGINEER: None. ANESTHESIA: Monitored anesthesia care, preop injection of 20 mL of 1:1 mixture of 1% Lidocaine plain and 0.5% Marcaine plain. ESTIMATED BLOOD LOSS: Minimal. MATERIALS: Arthrex 2.5 and 3.5 headless compression screws, Arthrex DynaNite staple, 3-0 and 4-0 Vicryl, 4-0 nylon, 4.5 K-wire. COMPLICATIONS: None. CONDITION: Stable. INDICATIONS: Emma Chopra is a 61-year-old female with painful bunion 2nd hammertoe. She presents today for surgical correction. Patient site and side were identified and marked in preoperative area. Consent was reviewed and obtained. Risks, complications and alternatives to the procedure were explained to the patient in detail and all questions were answered. DESCRIPTION OF PROCEDURE: The patient was brought to the operating room and placed on the operating table in supine position. Monitored anesthesia care was done by the anesthesia team. Preop injection of 20 mL of 1:1 mixture of 1% Lidocaine plain and 0.5% Marcaine plain injected into the right foot and right foot was prepped and draped in normal sterile fashion and tourniquet was applied to the right ankle and inflated at 225 mmHg. Dorsal incision was made over the 1st metatarsophalangeal joint and carried through with #15 blade. Dissection was carried down and the joint capsule was identified, T-capsulotomy was performed exposing the metatarsal head. Lateral release was performed releasing the adductor tendon, lateral capsule and sesamoidal ligament. McGlamry elevator was used to release the plantar structures. Medial eminence of the metatarsal head was resected with sagittal saw and osteotomy was performed of the metatarsal head and neck transposing it laterally. This was fixated with Arthrex 3.5 headless compression screw. Remaining bone edge was resected with sagittal saw, site was irrigated with normal saline. Attention was then paid to the proximal phalanx of the hallux. Osteotomy was performed removing a wedge of the medial cortex, effectively placing the toe in more medial position. This was fixated with Arthrex DynaNite staple. Wedge of capsule was removed from the medial capsule and the capsule was repaired with 3-0 Vicryl, subcutaneous closure of 4-0 Vicryl and skin closure of 4-0 nylon. Attention was paid to the 2nd toe. Dorsal incision was made over the 2nd toe and metatarsophalangeal joint, carried through with #15 blade. Linear capsulotomy was performed exposing the 2nd metatarsal head. McGlamry elevator was used to release the ligamentous structures. Osteotomy was performed of the 2nd metatarsal head transposing it proximally. This was fixated with Arthrex 2.5 headless compression screw. Remaining bone edge was removed with rongeur and smoothed with rasp. Attention was paid to the 2nd toe. Transverse tenotomy was performed of the proximal interphalangeal joint and the collateral ligaments were released allowing joint access. A 4.5 K-wire was inserted in retrograde fashion going now from the distal toe into the metatarsal head. Wire was bent and cut. Area was irrigated with normal saline. Capsular repair was performed with 3-0 Vicryl and tendon repair with 3-0 Vicryl. Subcutaneous closure with 4-0 Vicryl and skin closure with 4-0 nylon. 1 mL Decadron was injected. Sterile dressings were applied. Tourniquet was deflated. The patient was brought to PACU with vital signs stable and neurovascular status intact. She will be partial weightbearing. She will follow up in the office in two days.
== END 2021-01-17 11:46 | disposition home or self-care (01) ==
LOC: M SDC 05:59
PROVIDERS: ATTEND Podiatrist Foot & Ankle Surgery
DX: M20.11 Hallux valgus (acquired), right foot (principal); M20.41 Other hammer toe(s) (acquired), right foot; J44.9 Chronic obstructive pulmonary disease, unspecified; I10 Essential (primary) hypertension; K21.9 Gastro-esophageal reflux disease without esophagitis; F31.9 Bipolar disorder, unspecified; F32.9 Major depressive disorder, single episode, unspecified; F41.9 Anxiety disorder, unspecified; Z79.899 Other long term (current) drug therapy; Z79.51 Long term (current) use of inhaled steroids; Z88.0 Allergy status to penicillin; Z88.2 Allergy status to sulfonamides; Z88.8 Allergy status to other drugs, medicaments and biological substances
CPT/HCPCS: 28285; 28299; 28308; 88300; 97116; C1713; J1100; J2250; J2370; J2405; J3010

== ENCOUNTER → 2021-04-24 | Outpatient (REF) | payer MEDICARE, MEDICAID ==
[~2021-04-24] MED LIST changes: +HYDR-3713 PO; -QUET50TA3 PO; +QUET50TA4 PO
== END ==
LOC: M SFHCWAGY 13:10
PROVIDERS: ATTEND Nurse Practitioner Women's Health
DX: Z12.4 Encounter for screening for malignant neoplasm of cervix (principal)

== ENCOUNTER → 2021-04-24 | Outpatient (CLI) | payer MEDICARE, MEDICAID ==
--- NOTE | 2021-04-24 09:03 | REPMRS ---
Patient History The patient states she has not had a clinical breast exam in over a year. Family history of prostate cancer at age 50 or over in father, pancreatic cancer in maternal niece. Patient states no breast complaints today. Patient has signed MRS History Sheet. Digital Woman Screen Mammo: April 24, 2021 - Exam #: [id number] Bilateral CC and MLO view(s) were taken. Technologist: Yuli Parkinson, Technologist Prior study comparison: April 20, 2020, bilateral digital woman screen mammo performed at [facility]. March 26, 2019, bilateral digital woman screen mammo performed at [facility]. FINDINGS: There are scattered fibroglandular densities. Screening. Digital screening (2D) mammography was performed bilaterally in the CC and MLO projections. Additionally, breast tomosynthesis (3D mammography) was performed bilaterally in the CC and MLO projections. Todays exam was compared to the prior exam/exams. By history, the patient has no complaints of a palpable breast abnormality or other significant breast complaints. The breasts are unchanged in size and shape. There are no nany-soft tissue densities or spiculated masses. There is no internal architectural distortion. Once again, stable benign appearing calcifications are seen.There are no suspicious nany-calcific clusters. Skin thickening or nipple retraction is not present. IMPRESSION: BI-RADS Category 2- Benign Findings. There is no evidence of malignant alteration of the breasts. Followup examination recommended in one year. The Volpara volumetric breast density category is B, there are scattered areas of fibroglandular densities. This mammogram was read with the assistance of [employer],an FDA approved computer aided detection system for mammography. The lifetime Tyrer-Cuzick score is 10.6 % Negative x-ray reports should not delay surgical consultation if a dominant or clinically suspicious mass is present. Not all breast cancers can be identified by mammography. Therefore, we recommend that you continue to perform regular breast self-examination and physical examination and then promptly contact your physician of any concerns or changes. Adenosis and dense breasts may obscure an underlying neoplasm. Assessment: BI-RADS/ACR category 2 mammogram. Benign Findings. Recommendation Routine screening mammogram of both breasts in 1 year. Electronically Signed By: Clinton Ellsworth DO 04/24/21 0902
== END ==
LOC: M WHC 07:52
PROVIDERS: ATTEND Nurse Practitioner Women's Health
DX: Z01.419 Encounter for gynecological examination (general) (routine) without abnormal findings (principal); Z12.31 Encounter for screening mammogram for malignant neoplasm of breast
CPT/HCPCS: 77063; 77067; G0123; G0463

== ENCOUNTER → 2021-06-01 | Outpatient (CLI) | payer MEDICARE, MEDICAID ==
[2021-06-01 11:51] LABS: CHOLESTEROL RISK RATIO 3.224 (<5); FREE T4 0.85 NG/DL (0.76-1.46); THYROID STIMULATING HORMONE 2.63 uIU/ML (0.358-3.740)
== END ==
LOC: M PLALAB 07:26
PROVIDERS: ATTEND Family Medicine
DX: I11.9 Hypertensive heart disease without heart failure (principal); F31.9 Bipolar disorder, unspecified

== ENCOUNTER → 2021-10-23 | Outpatient (REF) | payer MEDICARE, MEDICAID ==
[~2021-10-23] MED LIST changes: +BENA-8 PO; -BENA20TA8 PO
[2021-10-23 16:34] LABS: HEMATOCRIT 40.6 % (36.0-47.0); HEMOGLOBIN 13.4 g/dl (12.0-15.5); MEAN CORPUSCULAR HEMOGLOBIN 27.7 pg (27.0-33.0); MEAN CORPUSCULAR VOLUME 83.9 fl (80.0-96.0); PLATELET COUNT, AUTOMATED 256 10^3/uL (150-450); RED BLOOD COUNT 4.84 10^6/uL (4.00-5.40); WHITE BLOOD COUNT 7.8 10^3/uL (4.0-10.0)
[2021-10-23 17:16] LABS: ALBUMIN 3.7 GM/DL (3.2-5.2); BILIRUBIN,TOTAL 0.5 MG/DL (0.2-1.0); CALCIUM LEVEL 9.7 MG/DL (8.8-10.2); CHOLESTEROL RISK RATIO 3.103 (<5); CREATININE FOR GFR 1.18 MG/DL (0.55-1.30); FREE T4 0.74 NG/DL (0.76-1.46); GLOMERULAR FILTRATION RATE 49.6 (>45); POTASSIUM SERUM 4.3 MEQ/L (3.5-5.1); THYROID STIMULATING HORMONE 1.99 uIU/ML (0.358-3.740); TOTAL PROTEIN 7.3 GM/DL (6.4-8.2)
== END ==
LOC: M SFHCADAM 13:59
PROVIDERS: ATTEND Family Medicine
DX: M94.0 Chondrocostal junction syndrome [Tietze] (principal); F31.9 Bipolar disorder, unspecified; J30.9 Allergic rhinitis, unspecified; E78.5 Hyperlipidemia, unspecified

== ENCOUNTER → 2022-04-26 | Outpatient (REF) | payer MEDICARE, MEDICAID | LOC: M SFHCWAGY 08:21 | PROVIDERS: ATTEND Advanced Practice Midwife | DX: Z12.4 Encounter for screening for malignant neoplasm of cervix (principal); Z77.9 Other contact with and (suspected) exposures hazardous to health ==

== ENCOUNTER → 2022-04-26 | Outpatient (CLI) | payer MEDICARE, MEDICAID | LOC: M WHC 13:57 | PROVIDERS: ATTEND Advanced Practice Midwife | DX: Z12.31 Encounter for screening mammogram for malignant neoplasm of breast (principal); R92.2 Inconclusive mammogram ==

== ENCOUNTER → 2022-05-20 | Outpatient (CLI) | payer MEDICARE, MEDICAID | LOC: M WHC 10:19 | PROVIDERS: ATTEND Advanced Practice Midwife | DX: R92.8 Other abnormal and inconclusive findings on diagnostic imaging of breast (principal); N63.23 Unspecified lump in the left breast, lower outer quadrant | CPT/HCPCS: 77065; G0279 ==

== ENCOUNTER → 2022-09-04 | Outpatient (REF) | payer MEDICARE, MEDICAID ==
[2022-09-04 13:00] LABS: BASO # 0.1 10^3/uL (0.0-0.2); BASO % 0.7 % (0.0-1.0); EOS # 0.3 10^3/uL (0.0-0.5); EOS % 3.6 % (0.0-3.0); HEMATOCRIT 38.8 % (36.0-47.0); HEMOGLOBIN 12.7 g/dl (12.0-15.5); LYMPH # 2.4 10^3/uL (1.5-5.0); LYMPH % 33.8 % (24.0-44.0); MEAN CORPUSCULAR HEMOGLOBIN 28.8 pg (27.0-33.0); MEAN CORPUSCULAR HGB CONC 32.7 g/dl (32.0-36.5); MONO # 0.6 10^3/uL (0.0-0.8); MONO % 8.8 % (2.0-8.0); NEUTROPHILS # 3.7 10^3/uL (1.5-8.5); NEUTROPHILS % 52.8 % (36.0-66.0); PLATELET COUNT, AUTOMATED 239 10^3/uL (150-450); RED BLOOD COUNT 4.41 10^6/uL (4.00-5.40)
[2022-09-04 13:36] LABS: CALCIUM LEVEL 9.3 MG/DL (8.3-10.6); CREATININE FOR GFR 1.07 MG/DL (0.55-1.30); GLOMERULAR FILTRATION RATE 55.3 (>45); POTASSIUM SERUM 4.6 MMOL/L (3.5-5.1)
== END ==
LOC: M SFHCADAM 10:21
PROVIDERS: ATTEND Physician Assistant
DX: K21.9 Gastro-esophageal reflux disease without esophagitis (principal)

== ENCOUNTER → 2022-09-13 | Outpatient (REF) | payer MEDICARE, MEDICAID | LOC: M SFHCADAM 10:02 | PROVIDERS: ATTEND Physician Assistant | DX: K21.9 Gastro-esophageal reflux disease without esophagitis (principal) ==

== ENCOUNTER → 2022-09-30 | Outpatient (CLI) | payer MEDICARE, MEDICAID ==
[2022-09-30 11:04] LABS: ALBUMIN 3.8 G/DL (3.2-5.2); BILIRUBIN,TOTAL 1.5 MG/DL (0.3-1.2); CALCIUM LEVEL 9.3 MG/DL (8.3-10.6); CHOLESTEROL RISK RATIO 3.38 (<5); CREATININE FOR GFR 1.05 MG/DL (0.55-1.30); FREE T4 0.89 NG/DL (0.89-1.76); GLOMERULAR FILTRATION RATE 56.5 (>45); HDL CHOLESTEROL 54.4 MG/DL (>40); LDL CHOLESTEROL 108.4 MG/DL (<100); POTASSIUM SERUM 4.2 MMOL/L (3.5-5.1); THYROID STIMULATING HORMONE 3.182 uIU/ML (0.55-4.78); TOTAL PROTEIN 7.1 G/DL (5.7-8.2)
[2022-09-30 11:08] LABS: HEMATOCRIT 42.3 % (36.0-47.0); HEMOGLOBIN 13.8 g/dl (12.0-15.5); MEAN CORPUSCULAR HEMOGLOBIN 28.9 pg (27.0-33.0); MEAN CORPUSCULAR HGB CONC 32.6 g/dl (32.0-36.5); MEAN CORPUSCULAR VOLUME 88.5 fl (80.0-96.0); PLATELET COUNT, AUTOMATED 280 10^3/uL (150-450); RED BLOOD COUNT 4.78 10^6/uL (4.00-5.40); WHITE BLOOD COUNT 7.7 10^3/uL (4.0-10.0)
== END ==
LOC: M PLALAB 07:17
PROVIDERS: ATTEND Family Medicine
DX: J45.20 Mild intermittent asthma, uncomplicated (principal); I11.9 Hypertensive heart disease without heart failure; E78.5 Hyperlipidemia, unspecified

== ENCOUNTER → 2022-10-14 | Outpatient (CLI) | payer MEDICARE, MEDICAID ==
[~2022-10-14] MED LIST changes: +ESTR0.1C5; +OMEP-173 PO; +PROA1AER2 INH
== END ==
LOC: M LABSMTC 10:14
PROVIDERS: ATTEND Anesthesiology
DX: Z01.812 Encounter for preprocedural laboratory examination (principal); Z20.822 Contact with and (suspected) exposure to COVID-19

== ENCOUNTER 2022-10-18 10:54 | Day surgery (SDC) | payer MEDICARE, MEDICAID ==
[~2022-10-18] VITALS: Ht 172.7 cm; Wt 100.7 kg
[~2022-10-18 10:54] MED LIST changes: +NS 1,000 ML IV ONE
[2022-10-18] MEDS ORDERED: fentaNYL 100 MCG/2 ML INJECTION As Ordered ONE (12:25)
[2022-10-18] MEDS ORDERED: propofoL 200 MG/20 ML VIAL As Ordered ONE (12:57)
[2022-10-18] MEDS ORDERED: LIDOCAINE 2% 100MG/5ML SDV (FOR ANES.) As Ordered ONE (12:57)
[2022-10-18 13:30] VITALS: BP 154/84
== END 2022-10-18 13:39 | disposition home or self-care (01) ==
LOC: M OPP 10:54
PROVIDERS: ATTEND Internal Medicine Gastroenterology
DX: K64.4 Residual hemorrhoidal skin tags (principal); K64.8 Other hemorrhoids; K92.1 Melena; K44.9 Diaphragmatic hernia without obstruction or gangrene; K29.70 Gastritis, unspecified, without bleeding; I10 Essential (primary) hypertension; R32 Unspecified urinary incontinence; J45.909 Unspecified asthma, uncomplicated; F31.9 Bipolar disorder, unspecified; Z87.891 Personal history of nicotine dependence; Z79.51 Long term (current) use of inhaled steroids; Z79.818 Long term (current) use of other agents affecting estrogen receptors and estrogen levels; Z79.899 Other long term (current) drug therapy; Z88.0 Allergy status to penicillin; Z88.1 Allergy status to other antibiotic agents; Z88.8 Allergy status to other drugs, medicaments and biological substances; Z80.42 Family history of malignant neoplasm of prostate
CPT/HCPCS: 43239; 45378; 88305; J3010

== ENCOUNTER → 2023-04-15 | Outpatient (CLI) | payer MEDICARE, MEDICAID ==
[~2023-04-15] MED LIST changes: +LORA1TAB23 PO; -LORA1TAB4 PO; -NS 1,000 ML IV ONE
== END ==
LOC: M ADAMS 13:33
PROVIDERS: ATTEND Physician Assistant Medical
DX: M25.532 Pain in left wrist (principal)

== ENCOUNTER → 2023-05-02 | Outpatient (CLI) | payer MEDICARE, MEDICAID | LOC: M WHC 07:39 | PROVIDERS: ATTEND Advanced Practice Midwife | DX: Z12.31 Encounter for screening mammogram for malignant neoplasm of breast (principal); Z12.4 Encounter for screening for malignant neoplasm of cervix | CPT/HCPCS: 77063; 77067; G0123 ==

== ENCOUNTER → 2023-05-02 | Outpatient (REF) | payer MEDICARE, MEDICAID | LOC: M SFHCWAGY 12:50 | PROVIDERS: ATTEND Advanced Practice Midwife | DX: Z12.4 Encounter for screening for malignant neoplasm of cervix (principal) ==

== ENCOUNTER 2023-06-06 07:14 | Day surgery (SDC) | payer MEDICARE, MEDICAID ==
[~2023-06-06] VITALS: Ht 175.3 cm; Wt 102.1 kg
[~2023-06-06 07:14] MED LIST changes: +LIDOCAINE W/EPINEPHRINE 1% 20ML VIAL XX ONE; +SODIUM BICARBONATE 8.4% INJ 50MEQ 50ML VIAL XX ONE
[2023-06-06] MEDS ORDERED: BACITRACIN OINTMENT 30GM TUBE As Ordered ONE (10:19)
[2023-06-06 10:28] VITALS: BP 142/69; TEMP 98; O2SAT 96
== END 2023-06-06 10:43 | disposition home or self-care (01) ==
LOC: M SDC 07:14
PROVIDERS: ATTEND Orthopaedic Surgery Hand Surgery
DX: M65.4 Radial styloid tenosynovitis [de Quervain] (principal); I10 Essential (primary) hypertension; J45.909 Unspecified asthma, uncomplicated; Z87.891 Personal history of nicotine dependence; Z88.0 Allergy status to penicillin; Z88.8 Allergy status to other drugs, medicaments and biological substances; Z88.2 Allergy status to sulfonamides

== ENCOUNTER → 2023-10-10 | Outpatient (CLI) | payer MEDICARE, MEDICAID ==
[~2023-10-10] MED LIST changes: -EFFE150C2 PO; +EFFE150C3 PO; -LIDOCAINE W/EPINEPHRINE 1% 20ML VIAL XX ONE; +OPTI0.5D2 OU; -OPTI0.5D5 OU; -SODIUM BICARBONATE 8.4% INJ 50MEQ 50ML VIAL XX ONE
[2023-10-10 12:17] LABS: HEMATOCRIT 42.1 % (36.0-47.0); HEMOGLOBIN 13.5 g/dl (12.0-15.5); MEAN CORPUSCULAR HEMOGLOBIN 28.7 pg (27.0-33.0); MEAN CORPUSCULAR HGB CONC 32.1 g/dl (32.0-36.5); MEAN CORPUSCULAR VOLUME 89.4 fl (80.0-96.0); PLATELET COUNT, AUTOMATED 251 10^3/uL (150-450); RED BLOOD COUNT 4.71 10^6/uL (4.00-5.40); WHITE BLOOD COUNT 7.9 10^3/uL (4.0-10.0)
[2023-10-10 12:44] LABS: ALBUMIN 3.7 G/DL (3.2-5.2); BILIRUBIN,TOTAL 1.3 MG/DL (0.3-1.2); CALCIUM LEVEL 9.7 MG/DL (8.3-10.6); CHOLESTEROL RISK RATIO 2.89 (<5); CREATININE FOR GFR 1.11 MG/DL (0.55-1.30); FREE T4 0.88 NG/DL (0.89-1.76); GLOMERULAR FILTRATION RATE 52.8 (>45); THYROID STIMULATING HORMONE 2.501 uIU/ML (0.55-4.78); TOTAL PROTEIN 7.1 G/DL (5.7-8.2)
[2023-10-10 12:46] LABS: HEMOGLOBIN A1c 5.7 % (4.0-6.0)
== END ==
LOC: M PLALAB 07:42
PROVIDERS: ATTEND Family Medicine
DX: I11.9 Hypertensive heart disease without heart failure (principal); F31.9 Bipolar disorder, unspecified; E78.5 Hyperlipidemia, unspecified; Z13.1 Encounter for screening for diabetes mellitus; Z79.899 Other long term (current) drug therapy

== ENCOUNTER → 2024-05-04 | Outpatient (CLI) | payer MEDICARE, MEDICAID | LOC: M WHC 09:03 | PROVIDERS: ATTEND Advanced Practice Midwife | DX: Z12.31 Encounter for screening mammogram for malignant neoplasm of breast (principal); R92.313 Mammographic fatty tissue density, bilateral breasts ==

== ENCOUNTER → 2024-05-04 | Outpatient (REF) | payer MEDICARE, MEDICAID ==
[2024-05-07 13:26] LABS: HPV APTIMA Not Detected (Not Detected)
== END ==
LOC: M SFHCWAGY 13:16
PROVIDERS: ATTEND Advanced Practice Midwife
DX: Z12.4 Encounter for screening for malignant neoplasm of cervix (principal)
CPT/HCPCS: 87624; G0123

== ENCOUNTER → 2024-10-08 | Outpatient (CLI) | payer MEDICARE, MEDICAID ==
[~2024-10-08] MED LIST changes: -ZIPR80CA12 PO; +ZIPR80CA31 PO
[2024-10-08 10:48] LABS: HEMATOCRIT 40.3 % (36.0-47.0); HEMOGLOBIN 13.1 g/dl (12.0-15.5); MEAN CORPUSCULAR HEMOGLOBIN 28.5 pg (27.0-33.0); MEAN CORPUSCULAR HGB CONC 32.5 g/dl (32.0-36.5); MEAN CORPUSCULAR VOLUME 87.8 fl (80.0-96.0); PLATELET COUNT, AUTOMATED 307 10^3/uL (150-450); RED BLOOD COUNT 4.59 10^6/uL (4.00-5.40); WHITE BLOOD COUNT 13.1 10^3/uL (4.0-10.0)
[2024-10-08 10:59] LABS: HEMOGLOBIN A1c 5.8 % (4.0-6.0)
[2024-10-08 11:07] LABS: ALBUMIN 3.7 G/DL (3.2-5.2); BILIRUBIN,TOTAL 1.4 MG/DL (0.3-1.2); CALCIUM LEVEL 10.3 MG/DL (8.3-10.6); CHOLESTEROL RISK RATIO 3.03 (<5); CREATININE FOR GFR 1.21 MG/DL (0.55-1.30); GLOMERULAR FILTRATION RATE 47.7 (>45); LDL CHOLESTEROL 95.8 MG/DL (<100); POTASSIUM SERUM 4.5 MMOL/L (3.5-5.1); TOTAL PROTEIN 7.3 G/DL (5.7-8.2)
[2024-10-08 11:12] LABS: THYROID STIMULATING HORMONE 2.659 uIU/ML (0.55-4.78)
== END ==
LOC: M PLALAB 07:49
PROVIDERS: ATTEND Family Medicine
DX: Z13.1 Encounter for screening for diabetes mellitus (principal); F31.9 Bipolar disorder, unspecified; I11.9 Hypertensive heart disease without heart failure; E78.5 Hyperlipidemia, unspecified

== ENCOUNTER → 2025-05-06 | Outpatient (CLI) | payer MEDICARE, MEDICAID ==
[~2025-05-06] MED LIST changes: -ABIL400I IM; +ARIP400S IM
== END ==
LOC: M WHC 08:39
PROVIDERS: ATTEND Advanced Practice Midwife
DX: Z12.31 Encounter for screening mammogram for malignant neoplasm of breast (principal); R92.313 Mammographic fatty tissue density, bilateral breasts

== ENCOUNTER → 2025-05-06 | Outpatient (REF) | payer MEDICARE, MEDICAID ==
[2025-05-10 16:08] LABS: HPV APTIMA Not Detected (Not Detected)
== END ==
LOC: M SFHCWAGY 13:19
PROVIDERS: ATTEND Advanced Practice Midwife
DX: Z12.4 Encounter for screening for malignant neoplasm of cervix (principal); Z77.9 Other contact with and (suspected) exposures hazardous to health
CPT/HCPCS: 87624; G0123